=== PATIENT | male | born 1945 | race Caucasian/White ===

== ENCOUNTER 2016-07-25 01:41 | Inpatient (IN) | payer MEDICARE, OTHER ==
[2016-07-25] VITALS (10 sets, daily range): BP systolic 109–167; BP diastolic 62–113
[~2016-07-25] VITALS: Ht 165.1 cm; Wt 48.2 kg
[2016-07-25] MEDS ORDERED: NS IV 1000 ML 1,000 ML IV ONE (01:47)
[2016-07-25] MEDS ORDERED: methylPREDNISolone 125 MG (Solu-MEDROL) VIAL IVP ONE (02:00)
[2016-07-25] MEDS ORDERED: RT-ALBUTEROL/IPRATROPIUM 3 ML (DUONEB) VIAL INH ONE (02:00)
[2016-07-25 02:12] LABS: BASOPHILS # (AUTO) 0.1 10^3/uL (0.0-0.1); BASOPHILS % (AUTO) 1 % (0-10); EOSINOPHILS # (AUTO) 0.8 10^3/uL (0.0-0.3); EOSINOPHILS % (AUTO) 10 % (0-10); LYMPHOCYTES # (AUTO) 3.3 X 10^3 (1.0-4.0); LYMPHOCYTES % (AUTO) 41 % (12-44); MEAN CORPUSCULAR HEMOGLOBIN 33 PG (25-34); MEAN CORPUSCULAR HGB CONC 32 G/DL (32-36); MEAN CORPUSCULAR VOLUME 100 FL (80-99); MEAN PLATELET VOLUME 11.8 FL (7.4-10.4); MONOCYTES # (AUTO) 0.8 X 10^3 (0.0-1.0); MONOCYTES % (AUTO) 10 % (0-12); NEUTROPHILS # (AUTO) 3.2 X 10^3 (1.8-7.8); NEUTROPHILS % (AUTO) 39 % (42-75); PLATELET COUNT 222 10^3/uL (130-400); RED BLOOD COUNT 4.93 10^6/uL (4.35-5.85); RED CELL DISTRIBUTION WIDTH 13.2 % (10.0-14.5); WHITE BLOOD COUNT 8.1 10^3/uL (4.3-11.0)
[2016-07-25] MEDS ORDERED: CLAR-19 PO (02:36)
[2016-07-25] MEDS ORDERED: ALBU90AE INH (02:36)
[2016-07-25 02:39] LABS: ANION GAP 17 MMOL/L (5-14); BLOOD UREA NITROGEN 8 MG/DL (7-18); BUN/CREATININE RATIO 8; CARBON DIOXIDE 20 MMOL/L (21-32); CHLORIDE 105 MMOL/L (98-107); CREATININE SERUM 1.05 MG/DL (0.60-1.30); GFR ESTIMATED > 60; GLUCOSE 136 MG/DL (70-105); POTASSIUM 5.3 MMOL/L (3.6-5.0); SODIUM 142 MMOL/L (135-145)
[2016-07-25 02:40] LABS: ALANINE AMINOTRANSFERASE 15 U/L (0-55); ALBUMIN 4.4 G/DL (3.2-4.5); ASPARTATE AMINO TRANSFERASE 23 U/L (5-34); BILIRUBIN,TOTAL 0.3 MG/DL (0.1-1.0); TOTAL PROTEIN 7.4 G/DL (6.4-8.2); TROPONIN I < 0.30 NG/ML (<0.30)
--- NOTE | 2016-07-25 04:22 | ED Respiratory ---
General Chief Complaint: Respiratory Problems Stated Complaint: SOB Nursing Triage Note: Pt to ED per POV, assisted at car with WC. entered ER and reports patient not breathing well. Emergently brought to ED 7, Dr notified and RT paged. Pt is resp distress Source: patient, family Exam Limitations: no limitations History of Present Illness Time seen by provider: 01:47 Initial Comments This 70-year-old gentleman with COPD presents to the emergency room in respiratory distress. He was recently seen in the outpatient setting and prescribed antibiotics and an inhaler. He worsen despite treatment. He continues to smoke. He denies fever or significant cough. He is diaphoretic and in significant distress on arrival. He denies chest pain. He denies any cardiac problems. Allergies and Home Medications Allergies Coded Allergies: No Known Drug Allergies (Unverified , 07/25/16) Home Medications Albuterol Sulfate 90 Mcg Aer.pow.ba, #1 (Reported) Clarithromycin 500 Mg Tablet, #20 (Reported) Constitutional: see HPI EENTM: no symptoms reported Respiratory: see HPI Cardiovascular: no symptoms reported Gastrointestinal: no symptoms reported Genitourinary: no symptoms reported Musculoskeletal: no symptoms reported Skin: no symptoms reported Psychiatric/Neurological: No Symptoms Reported Hematologic/Lymphatic: No Symptoms Reported Immunological/Allergic: no symptoms reported Past Xbjvdpi-Cnjewm-Roljgs Hx Patient Social History Alcohol Use: Occasionally Uses Recreational Drug Use: No Smoking Status: Current Everyday Smoker Type Used: Cigars Recent Foreign Travel: No Contact w/Someone Who Travel: No Recent Infectious Disease Expo: No Recent Hopitalizations: No Seasonal Allergies Seasonal Allergies: No Surgeries HX Surgeries: Yes (ventral hernia) Respiratory Hx Respiratory Disorders: Yes Respiratory Disorders: COPD, Emphysema Cardiovascular Hx Cardiac Disorders: No Neurological Hx Neurological Disorders: No Reproductive System Hx Reproductive Disorders: No Genitourinary Hx Genitourinary Disorders: No Gastrointestinal Hx Gastrointestinal Disorders: No Musculoskeletal Hx Musculoskeletal Disorders: No Endocrine Hx Endocrine Disorders: No HEENT HX ENT Disorders: No Cancer Hx Cancer: No Psychosocial Hx Psychiatric Problems: No Integumentary HX Skin/Integumentary Disorder: No Blood Transfusions Hx Blood Disorders: No Physical Exam Vital Signs Vital Sign - Last 12Hours 07/25/16 01:41 Temp 98.1 Pulse 143 Resp 28 B/P (MAP) 188/147 Pulse Ox 80 O2 Delivery Nasal Cannula O2 Flow Rate 4.00 Capillary Refill : Less Than 3 Seconds General Appearance: WD/WN, severe distress HEENT: PERRL/EOMI, normal ENT inspection Neck: normal inspection Respiratory: respiratory distress, decreased breath sounds, accessory muscle use, crackles (Basilar), wheezing Cardiovascular: no edema, no murmur, tachycardia Gastrointestinal: non tender, soft Extremities: normal inspection, no pedal edema, no calf tenderness 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, no motor/sensory deficits, alert, normal mood/affect, oriented x 3 Skin: normal color, warm/dry Focused Exam Lactic Acid Level Laboratory Tests Test 07/25/16 01:50 07/25/16 02:49 Lactic Acid Level 8.71 MMOL/L (0.50-2.00) *H 2.35 MMOL/L (0.50-2.00) *H Progress/Results/Core Measures Results/Orders Lab Results Laboratory Tests Test 07/25/16 01:50 07/25/16 02:49 Range/Units White Blood Count 8.1 4.3-11.0 10^3/uL Red Blood Count 4.93 4.35-5.85 10^6/uL Hemoglobin 16.0 13.3-17.7 G/DL Hematocrit 49 40-54 % Mean Corpuscular Volume 100 H 80-99 FL Mean Corpuscular Hemoglobin 33 25-34 PG Mean Corpuscular Hemoglobin Concent 32 32-36 G/DL Red Cell Distribution Width 13.2 10.0-14.5 % Platelet Count 222 130-400 10^3/uL Mean Platelet Volume 11.8 H 7.4-10.4 FL Neutrophils (%) (Auto) 39 L 42-75 % Lymphocytes (%) (Auto) 41 12-44 % Monocytes (%) (Auto) 10 0-12 % Eosinophils (%) (Auto) 10 0-10 % Basophils (%) (Auto) 1 0-10 % Neutrophils # (Auto) 3.2 1.8-7.8 X 10^3 Lymphocytes # (Auto) 3.3 1.0-4.0 X 10^3 Monocytes # (Auto) 0.8 0.0-1.0 X 10^3 Eosinophils # (Auto) 0.8 H 0.0-0.3 10^3/uL Basophils # (Auto) 0.1 0.0-0.1 10^3/uL Prothrombin Time 13.0 12.2-14.7 SEC INR Comment 1.0 0.8-1.4 Activated Partial Thromboplast Time 26 24-35 SEC Sodium Level 142 135-145 MMOL/L Potassium Level 5.3 H 3.6-5.0 MMOL/L Chloride Level 105 98-107 MMOL/L Carbon Dioxide Level 20 L 21-32 MMOL/L Anion Gap 17 H 5-14 MMOL/L Blood Urea Nitrogen 8 7-18 MG/DL Creatinine 1.05 0.60-1.30 MG/DL Estimat Glomerular Filtration Rate > 60 BUN/Creatinine Ratio 8 Glucose Level 136 H 70-105 MG/DL Lactic Acid Level 8.71 *H 2.35 *H 0.50-2.00 MMOL/L Calcium Level 10.0 8.5-10.1 MG/DL Total Bilirubin 0.3 0.1-1.0 MG/DL Aspartate Amino Transf (AST/SGOT) 23 5-34 U/L Alanine Aminotransferase (ALT/SGPT) 15 0-55 U/L Alkaline Phosphatase 106 40-136 U/L Troponin I < 0.30 <0.30 NG/ML Total Protein 7.4 6.4-8.2 G/DL Albumin 4.4 3.2-4.5 G/DL Micro Results Microbiology 07/25/16 Influenza Types A,B Antigen (ATILIO) - Final, Complete My Orders Orders - MIKE GARCIA MD Cbc With Automated Diff (07/25/16 01:47) Comprehensive Metabolic Panel (07/25/16 01:47) Lactic Acid Analyzer (07/25/16 01:47) Blood Culture (07/25/16 01:47) Sputum Culture (07/25/16 01:47) Protime With Inr (07/25/16 01:47) Partial Thromboplastin Time (07/25/16 01:47) Chest 1 View, Ap/Pa Only (07/25/16 01:47) O2 (07/25/16 01:47) Saline Lock/Iv-Start (07/25/16 01:47) Saline Lock/Iv-Start (07/25/16 01:47) Vital Signs Adult Sepsis Patie Q1HR (07/25/16 01:47) Remove Rings In Anticipation O (07/25/16 01:47) Albuterol/Ipra Inhalation Soln (Duoneb I (07/25/16 02:00) Svn Sm Volume Nebulizer Rt-Rfs (07/25/16 01:47) Methylprednisolone Sod Succ (Solu-Medrol (07/25/16 02:00) Ns Iv 1000 Ml (Sodium Chloride 0.9%) (07/25/16 01:47) Ekg Tracing (07/25/16 01:47) Troponin I (07/25/16 01:47) Monitor-Rhythm Ecg Trace Only (07/25/16 01:47) Influenza A And B Antigens (07/25/16 02:30) Ekg Tracing (07/25/16 03:22) Medications Given in ED Current Medications Medications Dose Ordered Sig/Sandeep Route Start Time Stop Time Status Last Admin Dose Admin Albuterol/ Ipratropium 3 ml ONCE ONCE INH 07/25/16 02:00 07/25/16 02:01 DC 07/25/16 02:02 3 ML Methylprednisolone Sodium Succinate 125 mg ONCE ONCE IVP 07/25/16 02:00 07/25/16 02:01 DC 07/25/16 01:57 125 MG Sodium Chloride 1,000 ml @ 0 mls/hr Q0M ONCE IV 07/25/16 01:47 07/25/16 01:53 DC 07/25/16 01:57 999 MLS/HR Vital Signs/I&O Vital Sign - Last 12Hours 07/25/16 07/25/16 07/25/16 01:41 01:43 02:04 Temp 98.1 Pulse 143 101 Resp 28 26 B/P (MAP) 188/147 Pulse Ox 80 80 100 O2 Delivery Nasal Cannula Nasal Cannula O2 Flow Rate 4.00 4.00 Blood Pressure Mean: 161 Progress Note : Progress Note Patient was treated with DuoNeb and IV Solu-Medrol. BiPAP was applied. These therapies had good results. Patient was eventually able to come off of BiPAP and breathing normally on nasal cannula. He did not tolerate room air as he desaturated into the 80s without nasal cannula. The ST depression noted on the initial EKG resolved on the repeat EKG after respiratory distress was treated. Patient had mild hyperkalemia which was treated with DuoNeb and IV fluids. Lactic acid was markedly elevated but was significantly improved after being on BiPAP. There is no evidence for pneumonia on the chest x-ray. ECG EKG #1: EKG Time: 02:10 Rate: 95 Rhythm: Normal Sinus Comment Sinus rhythm with mild ST depression in multiple leads. Borderline prolonged QT interval. No significant axis deviation. EKG #2: EKG Time: 03:46 Rate: 96 Rhythm: Normal Sinus ECG Comparisson: Changed Comment Normal sinus rhythm with no ST elevation or depression. Mild ST depression on prior EKG has resolved. Borderline prolonged QT interval. No significant axis deviation. Diagnostic Imaging Diagonstic Imaging: CT Plain Films/CT/US/NM/MRI: chest Comments Chest x-ray viewed by me. Report not yet available. Hyperinflation with no other acute abnormalities appreciated. Departure Communication Time/Spoke to Admitting Phy: 04:00 Communication Case was reviewed with Dr. Chin who agrees with admission for treatment of COPD exacerbation and respiratory failure. She requests cardiology consultation due to the ST changes on the initial EKG. Time/Spoke to Consulting Physi: 04:05 Communication/Consulting Case discussed with Dr. Echevarria who agrees with admission. Impression Impression: Primary Impression: Respiratory failure Qualified Codes: J96.01 - Acute respiratory failure with hypoxia Additional Impressions: COPD exacerbation Hypoxia ST segment depression Hyperkalemia Disposition: ADMITTED INPATIENT Condition: Improved Decision to Admit Reason: Admit from ER (General) Decision to Admit/Date: Jul 25, 2016 Time/Decision to Admit Time: 01:52 Departure-Patient Inst. Referrals: NO,LOCAL PHYSICIAN (PCP/Family) Primary Care Physician MIKE GARCIA MD Jul 25, 2016 04:22
[2016-07-25] MEDS: NS IV 1000 ML 1,000 ML IV SCH ×4 (05:48→16:41)
[2016-07-25] MEDS: RT-ALBUTEROL/IPRATROPIUM 3 ML (DUONEB) VIAL IH SCH ×5 (07:21→20:48)
--- NOTE | 2016-07-25 07:44 | Diagnostic Imaging Report ---
CLINICAL INDICATION: Patient with shortness of breath. EXAM: Portable chest x-ray upright view. COMPARISONS: None. FINDINGS: Lungs/pleura: There is hyperinflation of both lungs which could be due to patient respiratory effort versus mild obstructive process from COPD or small vessel airway disease, such as asthma. There are increased lung markings in both upper lobes which may be related to atelectasis or scarring. There is no pneumothorax. There is no pleural effusion. Mediastinum: Unremarkable. Pulmonary vasculature: Unremarkable. Heart: There is cardiomegaly. Bones/extrathoracic soft tissue: There are small degenerative spurs involving the visualized thoracic and upper lumbar spine. IMPRESSION: 1: There is hyperinflation of both lungs which could be due to patient respiratory effort versus mild obstructive process from COPD or small vessel airway disease, such as asthma. Clinical correlation would better evaluate. 2: Increased lung markings in both lung apices which may be related to atelectasis or scarring. Comparison to prior chest x-ray exam, if available, would help better evaluate and exclude lung infiltrates. If none are available, then chest x-ray 2 views may be of benefit. 3: Cardiomegaly with no significant pulmonary vascular congestion. Dictated by: Dictated on workstation # [id number]
--- NOTE | 2016-07-25 08:11 | Consultation-Cardiology ---
HPI-Cardiology Cardiology Consultation Date of Consultation 07/25/16 Date of Admission Indication: shortness of breath HPI 70 years old gentleman with history of COPD has been controlled for while. Did not use his inhaler for about a year, he is an active smoker, over the last week he started having worsening shortness of breath, went to the urgent care and started on inhaler and antibiotics, last night his shortness of breath was significantly worse, came into the emergency room with acute respiratory insufficiency, he has been having cough, having some chest pain mainly muscular skeletal due to the cough. No palpitation. No syncope or near syncopal episodes. Did not have any previous cardiac history. No significant family history. Does not take any medication at home. Home Medications & Allergies Allergies: Coded Allergies: No Known Drug Allergies (Unverified , 07/25/16) Home Medication List Reviewed: Yes ZLV-[id number]-Tzuvpa Hx Patient Social History Alcohol Use: Occasionally Uses Recreational Drug Use: No Smoking Status: Current Everyday Smoker Type Used: Cigars Recent Foreign Travel: No Recent Infectious Disease Expo: No Recent Hopitalizations: No Physical Abuse Screen: No Sexual Abuse: No Past Medical History COPD otherwise no known past history Family Medical History Family Medical Hx grandmother has history of heart disease Family History: Patient reports no known family medical history. Constitutional: no symptoms reported, see HPI EENTM: no symptoms reported, see HPI Respiratory: see HPI, cough, dyspnea on exertion, orthopnea, short of breath, wheezing Cardiovascular: see HPI, chest pain (musculoskeletal mainly), No edema, No Hx of Intervention, No palpitations, No syncope, No vascular heart diseas, No other Gastrointestinal: no symptoms reported, see HPI Genitourinary: no symptoms reported, see HPI Musculoskeletal: no symptoms reported, see HPI Skin: no symptoms reported, see HPI Psychiatric/Neurological: No Symptoms Reported, See HPI Reviewed Test Results Reviewed Test Results Lab Laboratory Tests Test 07/25/16 01:50 07/25/16 02:49 Range/Units White Blood Count 8.1 4.3-11.0 10^3/uL Red Blood Count 4.93 4.35-5.85 10^6/uL Hemoglobin 16.0 13.3-17.7 G/DL Hematocrit 49 40-54 % Mean Corpuscular Volume 100 H 80-99 FL Mean Corpuscular Hemoglobin 33 25-34 PG Mean Corpuscular Hemoglobin Concent 32 32-36 G/DL Red Cell Distribution Width 13.2 10.0-14.5 % Platelet Count 222 130-400 10^3/uL Mean Platelet Volume 11.8 H 7.4-10.4 FL Neutrophils (%) (Auto) 39 L 42-75 % Lymphocytes (%) (Auto) 41 12-44 % Monocytes (%) (Auto) 10 0-12 % Eosinophils (%) (Auto) 10 0-10 % Basophils (%) (Auto) 1 0-10 % Neutrophils # (Auto) 3.2 1.8-7.8 X 10^3 Lymphocytes # (Auto) 3.3 1.0-4.0 X 10^3 Monocytes # (Auto) 0.8 0.0-1.0 X 10^3 Eosinophils # (Auto) 0.8 H 0.0-0.3 10^3/uL Basophils # (Auto) 0.1 0.0-0.1 10^3/uL Prothrombin Time 13.0 12.2-14.7 SEC INR Comment 1.0 0.8-1.4 Activated Partial Thromboplast Time 26 24-35 SEC Sodium Level 142 135-145 MMOL/L Potassium Level 5.3 H 3.6-5.0 MMOL/L Chloride Level 105 98-107 MMOL/L Carbon Dioxide Level 20 L 21-32 MMOL/L Anion Gap 17 H 5-14 MMOL/L Blood Urea Nitrogen 8 7-18 MG/DL Creatinine 1.05 0.60-1.30 MG/DL Estimat Glomerular Filtration Rate > 60 BUN/Creatinine Ratio 8 Glucose Level 136 H 70-105 MG/DL Lactic Acid Level 8.71 *H 2.35 *H 0.50-2.00 MMOL/L Calcium Level 10.0 8.5-10.1 MG/DL Total Bilirubin 0.3 0.1-1.0 MG/DL Aspartate Amino Transf (AST/SGOT) 23 5-34 U/L Alanine Aminotransferase (ALT/SGPT) 15 0-55 U/L Alkaline Phosphatase 106 40-136 U/L Troponin I < 0.30 <0.30 NG/ML Total Protein 7.4 6.4-8.2 G/DL Albumin 4.4 3.2-4.5 G/DL Physical Exam Vital Signs Vital Sign - Last 12Hours 07/25/16 01:41 Temp 98.1 Pulse 143 Resp 28 B/P (MAP) 188/147 Pulse Ox 80 O2 Delivery Nasal Cannula O2 Flow Rate 4.00 Capillary Refill : Less Than 3 Seconds General Appearance: WD/WN, Mild Distress Eyes: Bilateral Eye EOMI, Bilateral Eye Normal Inspection, Bilateral Eye PERRL HEENT: PERRL/EOMI, TMs Normal, Normal ENT Inspection, Pharynx Normal Neck: Full Range of Motion, Normal Inspection, Non Tender, Supple, Carotid Bruit Respiratory: Chest Non Tender, No Accessory Muscle Use, Crackles, Decreased Breath Sounds, Wheezing Cardiovascular: No Edema, No Gallop, No JVD, No Murmur, Normal Peripheral Pulses, Systolic Murmur, Tachycardia Gastrointestinal: Normal Bowel Sounds, No Organomegaly, No Pulsatile Mass, Non Tender, Soft Back: Normal Inspection, No CVA Tenderness, No Vertebral Tenderness Extremity: Normal Capillary Refill, Normal Inspection, Normal Range of Motion, Non Tender, No Calf Tenderness, No Pedal Edema Neurologic/Psychiatric: Alert, Oriented x3, No Motor/Sensory Deficits, Normal Mood/Affect Skin: Normal Color, Warm/Dry Lymphatic: No Adenopathy A/P-Cardiology Admission Diagnosis Acute respiratory insufficiency Acute exacerbation of COPD Tobaccoism Assessment/Plan Acute respiratory insufficiency, acute exacerbation of COPD, admitted and started on steroids, managed by primary care physician. Elevated lactic acid, trending down, receiving IV fluid. No leukocytosis. I'm expecting his leukocyte to increase after initiating steroids, repeat chest x- ray PA and lateral, repeat lactic acid level, evaluate 2-D echocardiogram Tobaccoism, educated on smoking cessation. Chest pain, nonspecific etiology, musculoskeletal in nature, currently no active chest pain, EKG showed nondiagnostic changes with minimal ST depression, I will repeat 12-lead EKG. Evaluate 2-D echocardiogram. Abnormal ECG, continue to monitor Trop, repeat ECG now Addendum at 408 p.m., patient had cardiomyopathy with elevated troponin, I proceeded with cardiac catheterization which showed severe disease at a long segment of the right coronary artery successful angioplasty and stent deployment using 2 stents of Xience Alpine 3.533 mm and 4.038 mm overlapping stents with excellent results Clinical Quality Measures DVT/VTE Risk/Contraindication: Risk Factor Score Per Nursin RFS Level Per Nursing on Admit: 4+=Very High MARIKA NELSON MD Jul 25, 2016 08:11
[2016-07-25 08:19] LABS: BASOPHILS % (AUTO) 0 % (0-10); EOSINOPHILS % (AUTO) 0 % (0-10); LYMPHOCYTES # (AUTO) 0.3 X 10^3 (1.0-4.0); LYMPHOCYTES % (AUTO) 5 % (12-44); MEAN CORPUSCULAR HEMOGLOBIN 34 PG (25-34); MEAN CORPUSCULAR HGB CONC 34 G/DL (32-36); MEAN CORPUSCULAR VOLUME 99 FL (80-99); MEAN PLATELET VOLUME 11.3 FL (7.4-10.4); MONOCYTES % (AUTO) 1 % (0-12); NEUTROPHILS # (AUTO) 5.9 X 10^3 (1.8-7.8); NEUTROPHILS % (AUTO) 94 % (42-75); PLATELET COUNT 174 10^3/uL (130-400); RED BLOOD COUNT 4.49 10^6/uL (4.35-5.85); WHITE BLOOD COUNT 6.2 10^3/uL (4.3-11.0)
[2016-07-25] MEDS: methylPREDNISolone 40 MG/ML (Solu-MEDROL) VIAL IV SCH ×3 (08:28→20:21)
[2016-07-25 08:34] LABS: BAND NEUTROPHILS 7 %; BASOPHILS % (MANUAL) 0 %; EOSINOPHILS % (MANUAL) 0 %; LYMPHOCYTES % (MANUAL) 4 %; NEUTROPHILS % (MANUAL) 89 %
[2016-07-25] MEDS ORDERED: NICOTINE 21 MG (NICODERM) PATCH TD PRN (09:00)
[2016-07-25 10:25] LABS: ABG HCO3 22 MMOL/L (23-27); ABG OXYGEN SATURATION 98 % (94-100); ABG PCO2 37 MMHG (35-45); ABG PH 7.39 (7.37-7.43); ABG PO2 95 MMHG (79-93); ABG TCO2 23.4 MMOL/L (21.0-31.0)
[2016-07-25 10:26] LABS: ALLENS TEST YES-POS; PATIENT TEMP 98.1
--- NOTE | 2016-07-25 10:34 | History & Physical-Hospitalist ---
HPI History of Present Illness: HPI/Chief Complaint CC: SOB HPI: 70 yoWM that presented to ER w/SOB and hx of COPD. Pt was recently seen and placed on antibiotics and inhaler but required hospitalization due to hypoxemia w/ elevated lactic acid of 8.71 that is now normalized, but troponin is elevated at 3.98 after normal level on admission. Cardiology is consultation evaluating. band sewer: Echo scheduled today Pt is NPO per Dr. Echevarria for possible cath after ECHO. Patient Interview: Pt does not currently have a PCP. Pt uses an inhaler at home, prescribed by Dr. Freeman. Pt has not had a flare up since 2014. Pt smokes but does not drink much. Pt is retired from 42 years on [employer]. Physical exam stable. Pt has not previously required a breathing machine Pt has been sick for a few days. Pt is experiencing congestion. Pt went to Urgent Care, he was prescribed an inhaler and antibiotics. Pt has taken Symbicort before, he had an allergic rxn to it. Pt states that he is allergic to steroids?? Pt does not ordinarily have heart problems Scribed by Adri Macdonald under the direct supervision of Dr. Cardenas. Source: patient Exam Limitations: no limitations Date Seen 07/25/16 Attending Physician Sarah Cardenas DO PCP No,Local Physician Referring Physician Date of Admission Jul 25, 2016 at 04:12 Home Medications & Allergies Home Medications Reviewed patient Home Medication Reconciliation Form Allergies Allergies Coded Allergies No Known Drug Allergies (Unverified07/25/16) Past Yvnydgw-Pieulb-Dfkwmp Hx Patient Social History Marrital Status: single Employed/Student: retired Alcohol Use: Occasionally Uses Recreational Drug Use: No Smoking Status: Current Everyday Smoker Type Used: Cigars Physical Abuse Screen: No Sexual Abuse: No Recent Foreign Travel: No Contact w/other who traveled: No Recent Hopitalizations: No Recent Infectious Disease Expo: No Seasonal Allergies Seasonal Allergies: No Surgeries HX Surgeries: Yes (ventral hernia) Respiratory Hx Respiratory Disorders: Yes Respiratory Disorders: COPD Cardiovascular Hx Cardiovascular Disorders: No Neurological Hx Neurological Disorders: No Reproductive System Hx Reproductive Disorders: No Genitourinary Hx Genitourinary Disorders: No Gastrointestinal Hx Gastrointestinal Disorders: No Musculoskeletal Hx Musculoskeletal Disorders: No Endocrine Hx Endocrine Disorders: No HEENT HX ENT Disorders: No Cancer Hx Cancer: No Psychosocial Hx Psychiatric Problems: No Integumentary HX Skin/Integumentary Disorder: No Blood Transfusions Hx Blood Disorders: No Family Medical History Family Hx: Patient reports no known family medical history. Review of Systems Constitutional: see HPI, weakness EENTM: no symptoms reported Respiratory: dyspnea on exertion, short of breath, wheezing Gastrointestinal: no symptoms reported Genitourinary: no symptoms reported Musculoskeletal: no symptoms reported Skin: no symptoms reported Psychiatric/Neurological: Depressed All Other Systems Reviewed Negative Unless Noted: Yes Physical Exam Physical Exam Vital Signs Vital Sign - Last 12Hours 07/25/16 01:41 Temp 98.1 Pulse 143 Resp 28 B/P (MAP) 188/147 Pulse Ox 80 O2 Delivery Nasal Cannula O2 Flow Rate 4.00 Capillary Refill : Less Than 3 Seconds General Appearance: No Apparent Distress, WD/WN, Chronically ill, Thin Eyes: Bilateral Eye Normal Inspection, Bilateral Eye PERRL HEENT: PERRL/EOMI, Normal ENT Inspection, Pharynx Normal Neck: Full Range of Motion, Normal Inspection, Non Tender, Supple, Carotid Bruit Respiratory: Chest Non Tender, No Accessory Muscle Use, No Respiratory Distress , Decreased Breath Sounds, Wheezing Cardiovascular: Regular Rate, Rhythm, No Edema, No Gallop, No JVD, No Murmur, Normal Peripheral Pulses Gastrointestinal: Normal Bowel Sounds, No Organomegaly, No Pulsatile Mass, Non Tender, Soft Back: Normal Inspection, No CVA Tenderness, No Vertebral Tenderness Extremity: Normal Capillary Refill, Normal Inspection, Normal Range of Motion, Non Tender, No Calf Tenderness, No Pedal Edema Neurologic/Psychiatric: Alert, Oriented x3, No Motor/Sensory Deficits, Normal Mood/Affect Skin: Normal Color, Warm/Dry Lymphatic: No Adenopathy Results Results/Procedures Lab Laboratory Tests 07/25/16 01:50 07/25/16 08:10 Assessment/Plan Admission Diagnosis Assessment: Severe hypoxemia due to exacerbation of COPD and current smoker causing elevated troponin of 3.98 will likely need cardiac catheter after echocardiogram per Dr. Echevarria Hyperkalemia Frail status Assessment and Plan Plan: Home O2 eval tomorrow Continue breathing treatments Echo scheduled today Pt is NPO per Dr. Echevarria IV steroids to continue since it appears he is not having any side effects at all whatsoever but may have had issues with the inhaled corticosteroids unsure at this time Home O2 evaluation for tomorrow morning in case we can set that up for discharge this weekend Smoking cessation Clinical Quality Measures DVT/VTE Risk/Contraindication: Risk Factor Score Per Nursin RFS Level Per Nursing on Admit: 4+=Very High SARAH CARDENAS DO Jul 25, 2016 10:34
--- NOTE | 2016-07-25 11:05 | Diagnostic Imaging Report ---
EXAM: PA and lateral views of the chest. INDICATION: Shortness of breath. FINDINGS: The lungs are hyperinflated. The heart size is borderline enlarged. No effusion or pneumothorax. The mediastinum and erwin appear unremarkable. Background interstitial thickening appears chronic. IMPRESSION: COPD. Borderline cardiac size. Dictated by: Dictated on workstation # [id number]
[2016-07-25] MEDS ORDERED: LIDOCAINE 1% INJ 20 ML (XYLOCAINE) VIAL ONE (13:27)
[2016-07-25] MEDS ORDERED: HEParin (CATH LAB) 2,000 ML IV ONE (13:27)
[2016-07-25] MEDS ORDERED: NS IV 1000 ML 1,000 ML ONE (13:27)
[2016-07-25] MEDS ORDERED: fentaNYL INJECTION 100 MCG/2 ML AMP ONE (14:24)
[2016-07-25] MEDS ORDERED: MIDAZOLAM 5 MG/5 ML (VERSED) VIAL ONE (14:24)
--- NOTE | 2016-07-25 15:04 | Cardiac Procedure Note-CS/ASA ---
Pre-Procedure Note Pre-Op Procedure Note H&P Reviewed The H&P was reviewed, patient examined and no changes noted. Date H&P Reviewed: Jul 25, 2016 Time H&P Reviewed: 15:04 Conscious Sedation Pre-Proced Time Reviewed: 15:04 ASA Class: 3 Airway Mallampati Classification: ([place] appropriate class) I. II. III, IV Lungs Heart ASA score ASA 1: a normal healthy patient ASA 2: a patient with a mild systemic disease (mid diabetes, controlled hypertension, obesity x ASA 3: a patient with a severe systemic disease that limits activity (angina , COPD, prior Myocardial infarction) ASA 4: a patient with an incapacitating disease that is a constant threat to life (CHF, renal failure) ASA 5: a moribund patient not expected to survive 24 hrs. (ruptured aneurysm) ASA 6: a declared brain patient whose organs are being harvested. For emergent operations, add the letter E after the classification Grade 3 Sedation Plan: Analgesia, Amnesia, Plan communicated to team members, Discussed options with patient/fam, Discussed risks with patient/fam Note The patient is an appropriate candidate to undergo the planned procedure, sedation, and anesthesia. The patient immediately re-assessed prior to indication. MARIKA NELSON MD Jul 25, 2016 3:04 pm
[2016-07-25] MEDS ORDERED: HEParin 1000 UNIT/ML (10ML VIAL) FOR BOLUS ONE (15:15)
[2016-07-25] MEDS ORDERED: ADENOSINE 3 MG/1 ML (ADENOSCAN) 30ML VIAL IV ONE (15:18)
[2016-07-25] MEDS ORDERED: NITROGLYCERIN DRIP 25 MG/D5W 250 ML IV ONE (15:28)
[2016-07-25] MEDS ORDERED: ATROPINE INJECTION 1 MG/10 ML SYR (ABBOTT) ONE (15:38)
[2016-07-25] MEDS ORDERED: ASPIRIN 325 MG (5 GR) TABLET ONE (15:55)
[2016-07-25] MEDS ORDERED: TICAGRELOR 90 MG TABLET (BRILINTA) PO ONE (15:55)
[2016-07-25] MEDS ORDERED: PATIENT MAY USE OWN MEDS, ALL PO SCH (16:00)
[2016-07-25] MEDS ORDERED: lisINopril 10 MG (PRINIVIL) TAB PO NR (16:00)
[2016-07-25] MEDS: TICAGRELOR 90 MG TABLET (BRILINTA) PO SCH (20:21)
[2016-07-26] VITALS: BP 124/73
[2016-07-26] MEDS: RT-ALBUTEROL SULF 2.5 MG/3 ML PRE-MIX VIAL IH PRN ×3 (02:06→02:09)
[2016-07-26] MEDS: RT-ALBUTEROL/IPRATROPIUM 3 ML (DUONEB) VIAL IH SCH ×3 (02:09→10:09)
[2016-07-26] MEDS: methylPREDNISolone 40 MG/ML (Solu-MEDROL) VIAL IV SCH ×2 (02:36→07:51)
[2016-07-26 04:19] LABS: MEAN PLATELET VOLUME 11.9 FL (7.4-10.4); RED BLOOD COUNT 4.01 10^6/uL (4.35-5.85); WHITE BLOOD COUNT 10.5 10^3/uL (4.3-11.0)
[2016-07-26 04:23] VITALS: BP 122/74
[2016-07-26 04:42] LABS: ALANINE AMINOTRANSFERASE 21 U/L (0-55); ALBUMIN 3.6 G/DL (3.2-4.5); ANION GAP 11 MMOL/L (5-14); ASPARTATE AMINO TRANSFERASE 60 U/L (5-34); BILIRUBIN,TOTAL 0.7 MG/DL (0.1-1.0); BLOOD UREA NITROGEN 16 MG/DL (7-18); BUN/CREATININE RATIO 21; CALCIUM 8.9 MG/DL (8.5-10.1); CARBON DIOXIDE 23 MMOL/L (21-32); CHLORIDE 108 MMOL/L (98-107); CHOLESTEROL 144 MG/DL (< 200); CREATININE SERUM 0.75 MG/DL (0.60-1.30); DIRECT LDL 84 MG/DL (1-129); GFR ESTIMATED > 60; GLUCOSE 131 MG/DL (70-105); POTASSIUM 4.1 MMOL/L (3.6-5.0); SODIUM 142 MMOL/L (135-145); TOTAL PROTEIN 5.8 G/DL (6.4-8.2); TRIGLYCERIDES 45 MG/DL (<150); VLDL CHOLESTEROL 9 MG/DL (5-40)
[2016-07-26 07:52] LABS: MAGNESIUM 2.1 MG/DL (1.8-2.4)
[2016-07-26] MEDS: TICAGRELOR 90 MG TABLET (BRILINTA) PO SCH (07:52)
[2016-07-26 08:00] VITALS: BP 144/75
--- NOTE | 2016-07-26 08:04 | Cardiology Progress Note ---
Subjective Subjective/Events-last exam patient is laying down in bed, feeling better, no chest pain, breathing better. Groin is healed well. Review of Systems General: No Chills, No Night Sweats, No Fatigue, No Malaise, No Appetite, No Other HEENT: No Head Aches, No Visual Changes, No Eye Pain, No Ear Pain, No Dysphasia , No Sinus Congestion, No Post Nasal Drip, No Sore Throat, No Other Pulmonary: Dyspnea, No Cough, No Pleuritic Chest Pain, No Other Cardiovascular: No: Chest Pain, Edema, Lt Headedness, Orthopnea, Other, Palpitations, Paroxysmal Noc. Dyspnea Objective-Cardiology Exam Last Set of Vital Signs Vital Signs 07/25/16 07/26/16 07/26/16 14:06 04:23 06:30 Temp 97.1 Pulse 97 Resp 20 B/P (MAP) 122/74 Pulse Ox 94 O2 Delivery Room Air O2 Flow Rate 2.00 Capillary Refill : Less Than 3 Seconds I&O Bad tableGeneral: Alert, Oriented X3, Cooperative HEENT: Atraumatic, PERRLA Neck: Supple, No JVD, No Thyromegaly Lungs: Clear to Auscultation, Normal Air Movement Heart: Regular Rate, Normal S1, Normal S2, No Murmurs Abdomen: Normal Bowel Sounds, Soft, No Tenderness, No Hepatosplenomegaly, No Masses Extremities: No Clubbing, No Cyanosis, No Edema, Normal Pulses, No Tenderness/ Swelling Skin: No Rashes, No Breakdown, No Significant Lesion Neuro: Normal Gait, Normal Speech, Strength at 5/5 X4 Ext, Normal Tone, Sensation Intact Psych/Mental Status: Mental Status NL, Mood NL Results Lab Laboratory Tests 07/25/16 08:10 07/26/16 03:15 A/P-Cardiology Admission Diagnosis Acute respiratory insufficiency Acute exacerbation of COPD Non-ST elevation myocardial infarction Congestive heart failure, acute left ventricular systolic dysfunction, ischemic and nonischemic cardiomyopathy Tobaccoism Assessment/Plan Acute respiratory insufficiency, acute exacerbation of COPD, better at this time. Managed by primary care physician. Coronary artery disease, severe disease at a long segment of the right coronary artery, complex intervention with deployment of 2 long stents Xience Alpine 3.5 33 and 4.038 expanded to 4.3 proximally and 4.0 distally. Educated in length about the importance of compliance with medication patient will need to be on aspirin and Brilinta for a full year at least. Congestive heart failure, acute left ventricular systolic dysfunction, ischemic cardiomyopathy in addition to nonischemic cardiomyopathy due to hypoxemia. Patient is started on beta blockers and JACLYN inhibitor, monitor as an outpatient. Elevated lactic acid, trending down, receiving IV fluid. No leukocytosis. followed and managed by primary care physician Jessica, educated on smoking cessation. Chest pain, nonspecific etiology, reporting improvement. Continue to monitor Clinical Quality Measures DVT/VTE Risk/Contraindication: Risk Factor Score Per Nursin RFS Level Per Nursing on Admit: 4+=Very High MARIKA NELSON MD Jul 26, 2016 08:04
[2016-07-26] MEDS ORDERED: METO-270 PO (08:06)
[2016-07-26] MEDS ORDERED: LISI10TA2 PO (08:06)
[2016-07-26] MEDS ORDERED: TICA90TA PO (08:06)
[2016-07-26] MEDS ORDERED: ASPI-983 PO (08:06)
--- NOTE | 2016-07-26 08:07 | Discharge Inst-Post CATH ---
Discharge Inst-CATH Post Cardiac Cath D/C Inst Follow Up/Plan Appointment with Dr. Echevarria's office next week CARDIAC CATH DISCHARGE INSTRUCTIONS *Hold Metformin for 48 hours post heart cath. ACTIVITY * Go Home directly and rest. * Limit activity of the leg (or wrist if it was used) for 7 days including aerobics, swimming, jogging, bicycling, etc. * Restrict stair-climbing for 7 days if possible, if not, climb up with your non -cath leg, then bring together on the same step. * Avoid lifting, pushing, pulling or excessive movement of the affected extremity for 7 days. * Customary sexual activity may be resumed after 2 days-use caution not to use a position that strains or causes pain to the affected extremity. * No driving for 24 hours. * NO SMOKING. * Avoid straining for bowel movements for 7 days. * Gentle walking on level ground is allowed. * Returning to work will depend on the type of procedure and the results. Your doctor will discuss this with you. CALL YOUR DOCTOR FOR ANY OF THE FOLLOWING: *If bleeding from the puncture site occurs- Apply gentle pressure to site with clean cloth and call your doctor or EMS. * If a knot or lump forms under the skin, increases in size, or causes pain. * If bruising appears to be worsening or moving further down your leg instead of disappearing. * Temperature above 101 F. CARE OF YOUR GROIN INCISION; * Bruising or purple discoloration of the skin near the puncture site is common. * You may shower only, no bathtub bathing for 5 days. Be careful to avoid slipping as your leg may feel stiff. * If a closure device was used on your femoral artery, please see the attached guide regarding care of the device and your leg. * REMOVE the dressing from your groin the next day after your procedure in the shower. CARE OF YOUR WRIST INCISION; * Bruising or purple discoloration of the skin near the puncture site is common. * You may shower. * DO NOT submerge wrist. * Remove dressing in 24 hours. MARIKA ECHEVARRIA MD Jul 26, 2016 08:07
[2016-07-26] MEDS ORDERED: ASPIRIN E.C. 81 MG (ECOTRIN) TAB PO SCH (09:00)
[2016-07-26] MEDS ORDERED: NICOTINE PATCH REMOVAL TP SCH (09:00)
[2016-07-26] MEDS ORDERED: lisINopril 10 MG (PRINIVIL) TAB PO SCH (09:00)
[2016-07-26] MEDS ORDERED: ALBU90AE INH (09:20)
[2016-07-26] MEDS ORDERED: PRED10TA22 PO (09:20)
--- NOTE | 2016-07-26 09:27 | Discharge Summary-Hospitalist ---
Diagnosis/Chief Complaint Date of Admission Jul 25, 2016 at 10:17 Date of Discharge Discharge Date: Jul 26, 2016 Admission Diagnosis Assessment: Severe hypoxemia due to exacerbation of COPD and current smoker causing elevated troponin of 3.98 will likely need cardiac catheter after echocardiogram per Dr. Echevarria Hyperkalemia Frail status Discharge Diagnosis Acute respiratory insufficiency Acute exacerbation of COPD Non-ST elevation myocardial infarction requiring cardiac catheterization with deployment of right coronary artery stent 2 Congestive heart failure, acute left ventricular systolic dysfunction, ischemic and nonischemic cardiomyopathy Tobaccoism Plan: Home O2 eval tomorrow Continue breathing treatments Echo scheduled today Pt is NPO per Dr. Echevarria IV steroids to continue since it appears he is not having any side effects at all whatsoever but may have had issues with the inhaled corticosteroids unsure at this time Home O2 evaluation for tomorrow morning in case we can set that up for discharge this weekend Smoking cessation Reason Hospital Visit/Course CC: SOB HPI: 70 yoWM that presented to ER w/SOB and hx of COPD. Pt was recently seen and placed on antibiotics and inhaler but required hospitalization due to hypoxemia w/ elevated lactic acid of 8.71 that is now normalized, but troponin is elevated at 3.98 after normal level on admission. 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 Echevarria for possible cath after ECHO. Patient Interview: Pt does not currently have a PCP. Pt uses an inhaler at home, prescribed by Dr. Freeman. Pt has not had a flare up since 2014. Pt smokes but does not drink much. Pt is retired from 42 years on [employer]. Physical exam stable. Pt has not previously required a breathing machine Pt has been sick for a few days. Pt is experiencing congestion. Pt went to Urgent Care, he was prescribed an inhaler and antibiotics. Pt has taken Symbicort before, he had an allergic rxn to it. Pt states that he is allergic to steroids?? Pt does not ordinarily have heart problems Scribed by Adri Macdonald under the direct supervision of Dr. Cardenas. Note from 07/26/16: Patient doing well and having no problems following catheterization Less short of breath and no wheezing Breathing much better No fever, vital signs stable, pleasant, oriented 3 Regular rate and rhythm, clear to auscultation bilaterally but diminished in the bases No edema Patient doing very well and had a cardiac catheterization uncomplicated with too long right coronary artery stents placed by Dr. Echevarria an uncomplicated manner. Patient denies any other shortness of breath or chest pain and I am evaluating home O2 results because we are in the process of discharging him home on Brilinta and smoking cessation in close follow-up with Dr. Echevarria. I am going to provide information for him to find a physician to establish his care and to monitor closely with close follow-up. Discharge Summary Discharge Physical Examination Allergies: Coded Allergies: Symbicort (Verified Allergy, 07/26/16) Vitals & I&Os Vital Signs Date Time Temp Pulse Resp B/P (MAP) Pulse Ox O2 Delivery O2 Flow Rate FiO2 07/26/16 08:00 97.8 114 22 144/75 93 Room Air 07/25/16 20:00 Hospital Course Labs (last 24 hrs) Laboratory Tests 07/25/16 10:15: Blood Gas Puncture Site LR, Blood Gas Patient Temperature 98.1, Arterial Blood pH 7.39, Arterial Blood Partial Pressure CO2 37, Arterial Blood Partial Pressure O2 95H, Arterial Blood HCO3 22L, Arterial Blood Total CO2 23.4, Arterial Blood Oxygen Saturation 98, Arterial Blood Base Excess -2.0, Desean Test YES-POS, Blood Gas Ventilator Setting NO, Blood Gas Inspired Oxygen 2 07/26/16 03:15: White Blood Count 10.5, Red Blood Count 4.01L, Hemoglobin 13.4, Hematocrit 39L, Mean Corpuscular Volume 98, Mean Corpuscular Hemoglobin 33, Mean Corpuscular Hemoglobin Concent 34, Red Cell Distribution Width 13.0, Platelet Count 174, Mean Platelet Volume 11.9H, Sodium Level 142, Potassium Level 4.1, Chloride Level 108H, Carbon Dioxide Level 23, Anion Gap 11, Blood Urea Nitrogen 16, Creatinine 0.75, Estimat Glomerular Filtration Rate > 60, BUN/Creatinine Ratio 21, Glucose Level 131H, Calcium Level 8.9, Magnesium Level 2.1, Total Bilirubin 0.7, Aspartate Amino Transf (AST/SGOT) 60H, Alanine Aminotransferase (ALT/SGPT) 21, Alkaline Phosphatase 75, Total Protein 5.8L, Albumin 3.6, Triglycerides Level 45, Cholesterol Level 144, LDL Cholesterol Direct 84, VLDL Cholesterol 9, HDL Cholesterol 50 Microbiology 07/25/16 Influenza Types A,B Antigen (ATILIO) - Final, Complete Pending Labs Laboratory Tests 07/26/16 03:15: White Blood Count 10.5, Red Blood Count 4.01, Hemoglobin 13.4, Hematocrit 39, Mean Corpuscular Volume 98, Mean Corpuscular Hemoglobin 33, Mean Corpuscular Hemoglobin Concent 34, Red Cell Distribution Width 13.0, Platelet Count 174, Mean Platelet Volume 11.9, Sodium Level 142, Potassium Level 4.1, Chloride Level 108, Carbon Dioxide Level 23, Anion Gap 11, Blood Urea Nitrogen 16, Creatinine 0.75, Estimat Glomerular Filtration Rate > 60, BUN/Creatinine Ratio 21, Glucose Level 131, Calcium Level 8.9, Magnesium Level 2.1, Total Bilirubin 0.7, Aspartate Amino Transf (AST/SGOT) 60, Alanine Aminotransferase (ALT/SGPT) 21, Alkaline Phosphatase 75, Total Protein 5.8, Albumin 3.6, Triglycerides Level 45, Cholesterol Level 144, LDL Cholesterol Direct 84, VLDL Cholesterol 9, HDL Cholesterol 50 Discharge Home Medications: Active Scripts Active Prednisone 10 Mg Tab.ds.pk 10 Mg PO DAILY Take 6 tabs(60mg)daily,decrease by 1 tab(10MG)daily. Proair Respiclick (Albuterol Sulfate) 90 Mcg Aer.pow.ba 1-2 Puff INH Q4H PRN Aspirin EC (Aspirin) 81 Mg Tablet.dr 81 Mg PO DAILY Lisinopril 10 Mg Tablet 10 Mg PO DAILY Metoprolol Succinate 25 Mg Tab.er.24h 25 Mg PO DAILY Brilinta (Ticagrelor) 90 Mg Tablet 90 Mg PO BID Reported Clarithromycin 500 Mg Tablet 500 Mg PO BID 10 Days FILLED #20 07-19-16 Instructions to patient/family Please see electonic discharge instructions given to patient. Clinical Quality Measures DVT/VTE Risk/Contraindication: Risk Factor Score Per Nursin RFS Level Per Nursing on Admit: 4+=Very High MALAIKA CARDENAS DO Jul 26, 2016 09:27
--- NOTE | 2016-07-26 10:26 | CARDIAC CATHETERIZATION ---
DATE OF SERVICE: 07/25/2016 BRIEF HISTORY: The patient is a 70-year-old gentleman with a history of COPD and tobaccoism. Admitted with acute respiratory insufficiency, was noted to have normal troponin on the first set, but had EKG changes with tachycardia, second set was elevated, echocardiogram showed severe cardiomyopathy. I decided to proceed with cardiac catheterization, possible PTCA. PROCEDURE NOTE: After explaining the procedure to the patient, all pros and cons were explained, all questions were answered. The patient signed consent then he was placed on the cardiac catheterization laboratory. Right groin was prepped in a sterile fashion. Local anesthesia applied to the right groin. A 6-Mozambican sheath was placed in the right femoral artery. A combination of right and left Rui catheter were used to access the right and left coronary system. Multiple views were obtained. A pigtail catheter advanced to the left ventricular cavity. Pressure was measured. Left ventriculogram was done. Pullback LV to aorta was done. At that point, the patient had significant long lesion in the right coronary artery; I decided to proceed with FFR. The patient was given 5000 units of heparin. FR guide was advanced to the right coronary artery. FFR wire was advanced and parked distally. Baseline was 0.82. The patient was started on adenosine drip and within 35 seconds, his FFR was down to 0.78. I then stopped the adenosine, proceeded with balloon pre-dilatation using 3.5 x 30 mm Emerge balloon. Then, I proceeded with deployment of XIENCE Alpine 3.5 x 33 mm stent in the distal right coronary artery, expanded to 4 mm. Proximal to that, a second stent 4.0 x 38 mm was deployed. Then, expanded to 4.2 mm and the overlap area was expanded to 4.3 mm. There was small residual area in the distal stent not fully deployed. I used noncompliant balloon NC Quantum 4.0 x 20 mm and deployed under 15 atmosphere. Angiogram showed excellent results. The patient was given nitroglycerin during the procedure. His total contrast used is 180 mL. Total radiation dose is 277 mGy. FINDINGS: 1. Hemodynamics, FFR was 0.82 at baseline and 0.79 after adenosine for 35 seconds. 2. LV gram 109/15, end-diastolic pressure of 15, aortic pressure 125/67, mean of 82. Anatomy to this main coronary artery has mild disease, nonobstructive disease. 3. Left anterior descending artery has tubular stenosis, mild disease. 4. Left circumflex artery has mild disease, nonobstructive disease. 5. Right coronary artery is a large dominant artery with severe disease at a very long segment, extending throughout the body of the right coronary artery. Successful balloon angioplasty, then deployment of 2 stents of XIENCE Alpine distally 3.5 x 33 mm proximally, 4.0 x 38 mm overlapping stent expanded proximally to 4.3 mm and distally 4.0 mm with excellent results. No residual stenosis was noted. 6. Left ventriculogram was done in the right anterior oblique position. Left ventricle is dilated with hypokinesia involving the apex and inferoapical segment and anterior apical segment. Estimated ejection fraction 40%-45%. CONCLUSION: 1. Severe stenosis at a long segment of the right coronary artery up to 80% and in some area up to 90% with successful deployment of 2 overlapping stents XIENCE Alpine distally 3.5 x 33 mm and proximally 4.0 x 38 mm, expanding to 4.3 mm proximally and 4.2 mm distally with excellent results. 2. Mild disease in the LAD and circumflex artery. 3. Prominent left ventricle with hypokinesia at the apex, anteroapical and inferoapical with estimated ejection fraction of 40%-45%. DISCUSSION AND RECOMMENDATION: The patient was bolused with aspirin and Brilinta. I will monitor him overnight. Job ID: [id number] DocumentID: [id number] Dictated Date: 07/25/2016 16:05:01 Information Assurance Manager Date: 07/26/2016 07:34:40 Dictated By: MARIKA NELSON MD
--- NOTE | 2016-07-26 10:47 | ECHOCARDIOGRAPHY REPORT ---
DATE OF SERVICE: 07/25/2016 PROCEDURE: Two-dimensional echocardiogram. REFERRING PHYSICIAN: Dr. Chin. INDICATION: Elevated troponin level. MEASUREMENT: LVID end diastolic 4.1, IVS thickness 1.1, LVPW thickness 1.1, left atrial diameter 3.1, ejection fraction 40%-45%. FINDINGS: 1. Technical quality is good. 2. The left ventricle is dilated with diffuse left ventricular hypokinesia, more pronounced at the apex and inferoapical segment, inferior wall. Estimated ejection fraction 40%-45%. 3. The left atrium is normal in size. No clots or thrombus were seen within the left atrium. 4. The right atrium and right ventricle are normal in size. No clots or thrombus were seen within the right side. 5. The mitral valve is normal in morphology with mild mitral regurgitation noted by color Doppler flow. No mitral valve prolapse. No mitral valve stenosis. 6. The aortic valve is trileaflet with normal opening and closing pattern. No significant aortic stenosis or regurgitation was seen. 7. The tricuspid valve is normal in morphology with mild tricuspid regurgitation noted by color Doppler flow. Doppler across the tricuspid valve estimated pulmonary artery pressure of 27 plus right atrial pressure. 8. The pulmonic valve is functioning normally. 9. No pericardial effusion. CONCLUSION: 1. Prominent left ventricle with diffuse left ventricular hypokinesia, more pronounced at the inferior wall, inferoapical segment. 2. Systolic function is reduced. Estimated ejection fraction 40%-45%. 3. Mild mitral and tricuspid regurgitation. 4. Estimated pulmonary artery pressure of 35 mmHg. Job ID: [id number] DocumentID: [id number] Dictated Date: 07/25/2016 17:07:49 Delivery Representative Date: 07/26/2016 09:41:10 Dictated By: MARIKA NELSON MD
== END 2016-07-26 10:50 | disposition home or self-care (01) | DRG 246 ==
LOC: EDUNIT# 01:43 → ER 01:45 → UNDOADMOB 04:12 → 4TH 04:12 → INTOOBSV 10:17 → OBSVTOIN 10:17 → ICU 16:35
PROVIDERS: ADMIT Internal Medicine; ATTEND Internal Medicine
PROC: 027035Z Dilation of Coronary Artery, One Artery with Two Drug-eluting Intraluminal Devices, Percutaneous Approach (ICD-10-PCS; principal; 2016-07-25)
PROC: 4A023N7 Measurement of Cardiac Sampling and Pressure, Left Heart, Percutaneous Approach (ICD-10-PCS; 2016-07-25)
PROC: B2151ZZ Fluoroscopy of Left Heart using Low Osmolar Contrast (ICD-10-PCS; 2016-07-25)
PROC: B2111ZZ Fluoroscopy of Multiple Coronary Arteries using Low Osmolar Contrast (ICD-10-PCS; 2016-07-25)
DX: I21.4 Non-ST elevation (NSTEMI) myocardial infarction (principal); J44.1 Chronic obstructive pulmonary disease with (acute) exacerbation; R06.89 Other abnormalities of breathing; I42.9 Cardiomyopathy, unspecified; I50.21 Acute systolic (congestive) heart failure; R09.02 Hypoxemia; F17.210 Nicotine dependence, cigarettes, uncomplicated; E87.5 Hyperkalemia; R54 Age-related physical debility; I25.10 Atherosclerotic heart disease of native coronary artery without angina pectoris; I08.1 Rheumatic disorders of both mitral and tricuspid valves; I25.5 Ischemic cardiomyopathy
CPT/HCPCS: 36415; 71010; 71020; 80053; 80061; 82805; 83605; 83735; 84484; 85007; 85025; 85027; 85347; 85610; 85730; 87040; 87081; 87804; 93005; 93041; 93306; 93458; 93571; 94640; 94760; 94761; 96374; G0378

== ENCOUNTER 2016-11-04 11:05 | Outpatient (RCR) | payer MEDICARE, OTHER ==
[~2016-11-04 11:05] MED LIST: ALBU90AE INH; ASPI-983 PO; CLAR-19 PO; LISI10TA2 PO; METO-387 PO; PRED10TA22 PO; TICA90TA PO
== END 2016-11-07 | disposition home or self-care (01) ==
LOC: CR 11:05
PROVIDERS: ATTEND Internal Medicine Cardiovascular Disease
DX: Z48.812 Encounter for surgical aftercare following surgery on the circulatory system (principal); I25.2 Old myocardial infarction; Z95.5 Presence of coronary angioplasty implant and graft
CPT/HCPCS: 93798

== ENCOUNTER → 2017-01-29 | Outpatient (CLI) | payer MEDICARE, OTHER ==
[~2017-01-29] MED LIST changes: +METO-270 PO; -METO-387 PO
== END ==
LOC: CARD 08:47
PROVIDERS: ATTEND Internal Medicine Cardiovascular Disease
DX: I25.10 Atherosclerotic heart disease of native coronary artery without angina pectoris (principal); I50.9 Heart failure, unspecified; I34.0 Nonrheumatic mitral (valve) insufficiency; I07.1 Rheumatic tricuspid insufficiency; R94.31 Abnormal electrocardiogram [ECG] [EKG]
CPT/HCPCS: 93306

== ENCOUNTER → 2017-04-09 | Outpatient (CLI) | payer MEDICARE, OTHER ==
[~2017-04-09] MED LIST changes: +CATHETER FLUSH 10 ML SYR IV PRN; -METO-270 PO; +METO-387 PO
[2017-04-09 13:48] VITALS: BP 153/77
--- NOTE | 2017-04-10 00:02 | STRESS TEST ---
DATE OF SERVICE: 04/09/2017 EXERCISE MYOVIEW STRESS TEST REPORT REFERRING PHYSICIAN: Dr. Santo Mcgee. Baseline heart rate is 58, baseline blood pressure 153/77. Baseline EKG is sinus rhythm with no ischemic changes. In summary, the patient was injected with 9.92 mCi of technetium-99 Myoview and the resting images were obtained. Then, the patient started exercising with the baseline heart rate, blood pressure and EKG mentioned above. The patient was injected with 30.5 mCi of technetium-99 Myoview at the peak exercise level. He was able to finish a total of 7 minutes and 40 seconds on standard Maximilian protocol. EKG was showing minimal nondiagnostic changes. Blood pressure 168/85. During recovery, heart rate and blood pressure returned to baseline. EKG returned to baseline. The resting and stress images were reviewed and compared in the short axis, horizontal long axis, and vertical long axis views. Review of the images showed typical male pattern with no significant ischemia or infarction. SSS is 0. TID value 1.02. On the gated images, the left ventricle appeared to be normal size with normal contractility. Calculated ejection fraction 60%. CONCLUSION: 1. Good exercise tolerance, a total of 7 minutes 40 seconds on standard Maximilian protocol, achieving 87% of maximum expected heart rate. 2. Appropriate heart rate with mild hypertensive response to exercise returned to baseline during recovery. 3. Minimal nondiagnostic EKG changes with exercise returned to baseline during recovery. 4. No ischemia or infarction on SPECT images. 5. Normal left ventricular size with normal contractility. Calculated ejection fraction 60%. Job ID: [id number] DocumentID: [id number] Dictated Date: 04/09/2017 17:35:15 Chrome Worker Date: 04/10/2017 00:01:36 Dictated By: MARIKA NELSON MD
== END ==
LOC: CARD 11:33
PROVIDERS: ATTEND Internal Medicine Cardiovascular Disease
DX: I25.10 Atherosclerotic heart disease of native coronary artery without angina pectoris (principal); I34.0 Nonrheumatic mitral (valve) insufficiency; I07.1 Rheumatic tricuspid insufficiency; J44.9 Chronic obstructive pulmonary disease, unspecified; R94.31 Abnormal electrocardiogram [ECG] [EKG]
CPT/HCPCS: 78452; 93017

== ENCOUNTER 2017-07-25 06:51 | Emergency (ER) | payer MEDICARE, OTHER ==
[~2017-07-25] VITALS: Ht 165.1 cm; Wt 54.4 kg
[~2017-07-25 06:51] MED LIST changes: -CATHETER FLUSH 10 ML SYR IV PRN
[2017-07-25] MEDS ORDERED: RT-ALBUTEROL/IPRATROPIUM 3 ML (DUONEB) VIAL INH ONE ×2 (07:00→07:30)
[2017-07-25 07:08] LABS: BASOPHILS # (AUTO) 0.1 10^3/uL (0.0-0.1); BASOPHILS % (AUTO) 1 % (0-10); EOSINOPHILS # (AUTO) 0.9 10^3/uL (0.0-0.3); EOSINOPHILS % (AUTO) 10 % (0-10); HEMATOCRIT 47 % (40-54); HEMOGLOBIN 15.6 G/DL (13.3-17.7); LYMPHOCYTES # (AUTO) 3.2 X 10^3 (1.0-4.0); LYMPHOCYTES % (AUTO) 37 % (12-44); MEAN CORPUSCULAR HEMOGLOBIN 34 PG (25-34); MEAN CORPUSCULAR HGB CONC 33 G/DL (32-36); MEAN CORPUSCULAR VOLUME 100 FL (80-99); MEAN PLATELET VOLUME 11.3 FL (7.4-10.4); MONOCYTES # (AUTO) 0.9 X 10^3 (0.0-1.0); MONOCYTES % (AUTO) 10 % (0-12); NEUTROPHILS # (AUTO) 3.7 X 10^3 (1.8-7.8); NEUTROPHILS % (AUTO) 42 % (42-75); PLATELET COUNT 240 10^3/uL (130-400); RED BLOOD COUNT 4.66 10^6/uL (4.35-5.85); RED CELL DISTRIBUTION WIDTH 12.9 % (10.0-14.5); WHITE BLOOD COUNT 8.7 10^3/uL (4.3-11.0)
--- NOTE | 2017-07-25 07:25 | Diagnostic Imaging Report ---
INDICATION: Shortness of air. COMPARISON: 07/25/2016 FINDINGS: Single frontal radiographic view of the chest was obtained and demonstrates borderline prominent cardiac silhouette. Pulmonary vasculature is also borderline prominent. Lungs are hyperinflated with flattening of the hemidiaphragms. There is also blunting of the bilateral costophrenic angles. There is no focal consolidation or pneumothorax. Bony structures show no gross acute abnormalities. IMPRESSION: 1. Mild cardiomegaly and mild pulmonary vascular congestion. 2. Probable small bibasilar effusions. 3. COPD. Dictated by: Dictated on workstation # [id number]
[2017-07-25 07:32] LABS: ALANINE AMINOTRANSFERASE 16 U/L (0-55); ALBUMIN 4.3 GM/DL (3.2-4.5); ALKALINE PHOSPHATASE 102 U/L (40-136); BILIRUBIN,TOTAL 0.4 MG/DL (0.1-1.0); BUN/CREATININE RATIO 12; CALCIUM 9.6 MG/DL (8.5-10.1); CARBON DIOXIDE 17 MMOL/L (21-32); CHLORIDE 105 MMOL/L (98-107); CREATININE SERUM 0.98 MG/DL (0.60-1.30); GFR ESTIMATED > 60; GLUCOSE 182 MG/DL (70-105); MAGNESIUM 2.6 MG/DL (1.8-2.4); POTASSIUM 4.4 MMOL/L (3.6-5.0); SODIUM 141 MMOL/L (135-145); TOTAL PROTEIN 7.1 GM/DL (6.4-8.2)
[2017-07-25] MEDS ORDERED: methylPREDNISolone 125 MG (Solu-MEDROL) VIAL IVP ONE (08:00)
[2017-07-25] MEDS ORDERED: RT-ALBUINH IH (08:23)
[2017-07-25] MEDS ORDERED: PRD20T PO (08:23)
--- NOTE | 2017-07-25 08:23 | ED Respiratory ---
General Chief Complaint: Respiratory Problems Stated Complaint: SOB Nursing Triage Note: PATIENT STATES HE HAS BEEN SHORT OF BREATH FOR 2-3 DAYS. HE HAS BEEN DOING BREATHING TREATMENTS AT HOME WITH LITTLE HELP. IT WAS WORSE THIS MORNING. Source: patient Exam Limitations: no limitations History of Present Illness Date Seen by Provider: Jul 25, 2017 Time Seen by Provider: 06:55 Initial Comments This 71-year-old gentleman presents to the emergency room with shortness of breath and respiratory distress. He has COPD he had has been using nebulizer treatments at home without significant relief this morning. He denies fever. He has nonproductive cough. He has coronary artery disease but denies chest pain. Allergies and Home Medications Allergies Coded Allergies: budesonide (Verified Allergy, Unknown, 07/26/16) formoterol (Verified Allergy, Unknown, 07/26/16) Home Medications Albuterol Sulfate 90 Mcg Aer.pow.ba, 1-2 PUFF INH Q4H PRN for SHORTNESS OF BREATH Prescribed by: MALAIKA CARDENAS on 07/26/16 0920 Albuterol Sulfate 1 Puff Puff, 1-4 PUFF IH Q4H PRN for SHORTNESS OF BREATH 1 PUFF = 90 MCG Prescribed by: MIKE PAYNE on 07/25/17822 Aspirin 81 Mg Tablet.dr, 81 MG PO DAILY Prescribed by: MARIKA NELSON on 07/26/16805 Lisinopril 10 Mg Tablet, 10 MG PO DAILY Prescribed by: MARIKA NELSON on 07/26/16805 Metoprolol Succinate 25 Mg Tab.er.24h, 25 MG PO DAILY Prescribed by: MARIKA NELSON on 07/26/16805 Prednisone 10 Mg Tab.ds.pk, 10 MG PO DAILY Take 6 tabs(60mg)daily,decrease by 1 tab(10MG)daily. Prescribed by: MALAIKA CARDENAS on 07/26/16919 Prednisone 20 Mg Tab, 40 MG PO DAILY Prescribed by: MIKE PAYNE on 07/25/17822 Ticagrelor 90 Mg Tablet, 90 MG PO BID Prescribed by: MARIKA NELSON on 07/26/16 08 Patient Home Medication List Home Medication List Reviewed: Yes Review of Systems Constitutional: no symptoms reported EENTM: no symptoms reported Respiratory: see HPI Cardiovascular: no symptoms reported Gastrointestinal: no symptoms reported Genitourinary: no symptoms reported Musculoskeletal: no symptoms reported Skin: no symptoms reported Psychiatric/Neurological: No Symptoms Reported Hematologic/Lymphatic: No Symptoms Reported Past Nxnpxss-Akocxu-Qvpnmv Hx Patient Social History Alcohol Use: Denies Use Number of Drinks Today: AA Alcohol Beverage of Choice: Beer Recreational Drug Use: No Smoking Status: Current Everyday Smoker Type Used: Cigars 2nd Hand Smoke Exposure: Yes Recent Foreign Travel: No Contact w/Someone Who Travel: No Recent Infectious Disease Expo: No Recent Hopitalizations: No Physical Abuse: No Sexual Abuse: No Seasonal Allergies Seasonal Allergies: No Past Medical History Surgeries: Yes (ventral hernia, left ankle surgery) Coronary Stent Respiratory: Yes COPD, Emphysema Currently Using CPAP: No Currently Using BIPAP: No Cardiac: Yes Coronary Artery Disease Neurological: No Reproductive Disorders: No Genitourinary: No Gastrointestinal: No Musculoskeletal: No Endocrine: No HEENT: No Cancer: No Psychosocial: No Nursing Suicide Risk Score: 0 Integumentary: No Blood Disorders: No Family Medical History Patient reports no known family medical history. Physical Exam Vital Signs Vital Signs - First Documented 07/25/17 07/25/17 06:56 07:02 Temp 97.6 Pulse 109 Resp 28 B/P (MAP) 150/90 (110) Pulse Ox 93 O2 Delivery Room Air O2 Flow Rate 2.00 Capillary Refill : Less Than 3 Seconds General Appearance: WD/WN, moderate distress, thin HEENT: PERRL/EOMI, normal ENT inspection Neck: normal inspection Respiratory: lungs clear, respiratory distress, accessory muscle use, wheezing Cardiovascular: no edema, no murmur, tachycardia Gastrointestinal: normal bowel sounds, non tender, soft Extremities: non-tender, normal inspection, no pedal edema, no calf tenderness Neurologic/Psychiatric: rehab director occupational therapist II-XII nml as tested, no motor/sensory deficits, alert, normal mood/affect, oriented x 3 Skin: normal color, warm/dry Progress/Results/Core Measures Suspected Sepsis Recent Fever Within 48 Hours: No Infection Criteria Present: Suspected New Infection New/Unexplained Altered Menta: No Sepsis Screen: Possible Sepsis Risk SIRS Temperature:97.6 Pulse: 109 Respiratory Rate: 28 Laboratory Tests 07/25/17 06:58: White Blood Count 8.7 Blood Pressure 150 /90 Mean: 110 Laboratory Tests 07/25/17 06:58: Creatinine 0.98, Platelet Count 240, Total Bilirubin 0.4 Results/Orders Lab Results Laboratory Tests Test 07/25/17 06:58 Range/Units White Blood Count 8.7 4.3-11.0 10^3/uL Red Blood Count 4.66 4.35-5.85 10^6/uL Hemoglobin 15.6 13.3-17.7 G/DL Hematocrit 47 40-54 % Mean Corpuscular Volume 100 H 80-99 FL Mean Corpuscular Hemoglobin 34 25-34 PG Mean Corpuscular Hemoglobin Concent 33 32-36 G/DL Red Cell Distribution Width 12.9 10.0-14.5 % Platelet Count 240 130-400 10^3/uL Mean Platelet Volume 11.3 H 7.4-10.4 FL Neutrophils (%) (Auto) 42 42-75 % Lymphocytes (%) (Auto) 37 12-44 % Monocytes (%) (Auto) 10 0-12 % Eosinophils (%) (Auto) 10 0-10 % Basophils (%) (Auto) 1 0-10 % Neutrophils # (Auto) 3.7 1.8-7.8 X 10^3 Lymphocytes # (Auto) 3.2 1.0-4.0 X 10^3 Monocytes # (Auto) 0.9 0.0-1.0 X 10^3 Eosinophils # (Auto) 0.9 H 0.0-0.3 10^3/uL Basophils # (Auto) 0.1 0.0-0.1 10^3/uL Sodium Level 141 135-145 MMOL/L Potassium Level 4.4 3.6-5.0 MMOL/L Chloride Level 105 98-107 MMOL/L Carbon Dioxide Level 17 L 21-32 MMOL/L Anion Gap 19 H 5-14 MMOL/L Blood Urea Nitrogen 12 7-18 MG/DL Creatinine 0.98 0.60-1.30 MG/DL Estimat Glomerular Filtration Rate > 60 BUN/Creatinine Ratio 12 Glucose Level 182 H 70-105 MG/DL Calcium Level 9.6 8.5-10.1 MG/DL Magnesium Level 2.6 H 1.8-2.4 MG/DL Total Bilirubin 0.4 0.1-1.0 MG/DL Aspartate Amino Transf (AST/SGOT) 23 5-34 U/L Alanine Aminotransferase (ALT/SGPT) 16 0-55 U/L Alkaline Phosphatase 102 40-136 U/L Troponin I < 0.30 <0.30 NG/ML C-Reactive Protein High Sensitivity 0.11 0.00-0.50 MG/DL B-Type Natriuretic Peptide 45.5 <100.0 PG/ML Total Protein 7.1 6.4-8.2 GM/DL Albumin 4.3 3.2-4.5 GM/DL Micro Results Microbiology 07/25/17 Influenza Types A,B Antigen (ATILIO) - Final, Complete My Orders Orders - MIKE GARCIA MD Cbc With Automated Diff (07/25/17 06:54) Comprehensive Metabolic Panel (07/25/17 06:54) Hs C Reactive Protein (07/25/17 06:54) Magnesium (07/25/17 06:54) Troponin I (07/25/17 06:54) Influenza A And B Antigens (07/25/17 06:54) Saline Lock/Iv-Start (07/25/17 06:54) Ekg Tracing (07/25/17 06:54) O2 (07/25/17 06:54) Monitor-Rhythm Ecg Trace Only (07/25/17 06:54) Chest 1 View, Ap/Pa Only (07/25/17 06:54) Albuterol/Ipra Inhalation Soln (Duoneb I (07/25/17 07:00) Svn Small Volume Nebulizer (07/25/17 06:54) Albuterol/Ipra Inhalation Soln (Duoneb I (07/25/17 07:30) Svn Small Volume Nebulizer (07/25/17 07:22) BNP (07/25/17 07:29) Methylprednisolone Sod Succ (Solu-Medrol (07/25/17 08:00) Medications Given in ED Current Medications Medications Dose Ordered Sig/Sandeep Route Start Time Stop Time Status Last Admin Dose Admin Albuterol/ Ipratropium 3 ml ONCE ONCE INH 07/25/17 07:00 07/25/17 07:01 DC 07/25/17 07:02 3 ML Albuterol/ Ipratropium 3 ml ONCE ONCE INH 07/25/17 07:30 07/25/17 07:31 DC 07/25/17 07:29 3 ML Methylprednisolone Sodium Succinate 62.5 mg ONCE ONCE IVP 07/25/17 08:00 07/25/17 08:01 DC 07/25/17 08:05 62.5 MG Vital Signs/I&O 07/25/17 07/25/17 07/25/17 07/25/17 06:56 06:57 07:02 07:29 Temp 97.6 Pulse 109 Resp 28 B/P (MAP) 150/90 (110) Pulse Ox 93 99 99 96 O2 Delivery Room Air Nasal Cannula Nasal Cannula Nasal Cannula O2 Flow Rate 2.00 2.00 07/25/17 08:32 Temp 97.6 Pulse 109 Resp 28 B/P (MAP) 101/68 (110) Pulse Ox 96 O2 Delivery Nasal Cannula O2 Flow Rate 2.00 Capillary Refill : Less Than 3 Seconds Blood Pressure Mean: 110 Progress Note : Progress Note Patient responded well to DuoNeb. He still had some wheezing after the first treatment. Treatment was repeated. He also received Solu-Medrol 62.5 mg by IV route. There is no evidence for infection. Troponin and EKG were normal. Patient reported he had not been taking Bevespi routinely. We discussed the proper use of this medication. Patient was advised to follow-up with Dr. Calle as soon as possible. A short course of prednisone was prescribed. Diagnostic Imaging Diagonstic Imaging: Xray Plain Films/CT/US/NM/MRI: chest Comments Chest x-ray viewed by me and report reviewed. See report below: NAME: MECHELLE CABALLERO [facility] REC#: [id number] PT STATUS: REG ER : 1945 PHYSICIAN: MIKE GARCIA MD ADMIT DATE: 07/25/17/ER Signed Date of Exam: 07/25/17 CHEST 1 VIEW, AP/PA ONLY INDICATION: Shortness of air. COMPARISON: 07/25/2016 FINDINGS: Single frontal radiographic view of the chest was obtained and demonstrates borderline prominent cardiac silhouette. Pulmonary vasculature is also borderline prominent. Lungs are hyperinflated with flattening of the hemidiaphragms. There is also blunting of the bilateral costophrenic angles. There is no focal consolidation or pneumothorax. Bony structures show no gross acute abnormalities. IMPRESSION: 1. Mild cardiomegaly and mild pulmonary vascular congestion. 2. Probable small bibasilar effusions. 3. COPD. Dictated by: Dictated on workstation # [id number] Dict: 07/25/17718 Trans: 07/25/17807 Interpreted by: BRAYDEN BORJA MD Electronically signed by: BRAYDEN BORJA MD 07/25/17 08 Departure Impression Primary Impression: COPD exacerbation Disposition: 01 HOME, SELF-CARE Condition: Improved Departure-Patient Inst. Decision time for Depature: 08:20 Referrals: CORIN CALLE MD (PCP/Family) Primary Care Physician Patient Instructions: Chronic Obstructive Pulmonary Disease (COPD), Including Emphysema Add. Discharge Instructions: Take your Bevespi 2 puffs twice daily as a maintenance medication. Use your albuterol rescue inhaler (Pro Air) when you do not have a nebulizer available and are feeling short of air. Complete the prednisone as prescribed. Return to the emergency room if you have worsening symptoms. Follow-up with Dr. Calle as soon as possible. Work toward quitting smoking and seek assistance from Dr. Calle if needed. All discharge instructions reviewed with patient and/or family. Voiced understanding. Scripts Prednisone (Prednisone) 20 Mg Tab 40 MG PO DAILY, #8 TAB Prov: MIKE GARCIA MD 07/25/17 Albuterol Sulfate (PROAIR HFA) 1 Puff Puff 1-4 PUFF IH Q4H PRN for SHORTNESS OF BREATH, #1 PUFF 2 Refills 1 PUFF = 90 MCG Prov: MIKE GARCIA MD 07/25/17 Copy Copies To 1: CORIN CALLE MD, JOSHUA T MD Jul 25, 2017 08:23
[2017-07-25 08:32] VITALS: BP 101/68
== END 2017-07-25 08:42 | disposition home or self-care (01) ==
LOC: EDUNIT# 06:51 → ER 06:52
DX: J44.1 Chronic obstructive pulmonary disease with (acute) exacerbation (principal); I25.10 Atherosclerotic heart disease of native coronary artery without angina pectoris; F17.290 Nicotine dependence, other tobacco product, uncomplicated; Z79.51 Long term (current) use of inhaled steroids; Z95.5 Presence of coronary angioplasty implant and graft; Z79.82 Long term (current) use of aspirin; Z79.52 Long term (current) use of systemic steroids; Z88.8 Allergy status to other drugs, medicaments and biological substances
CPT/HCPCS: 36415; 71045; 80053; 83735; 83880; 84484; 85025; 86141; 87804; 93005; 93041; 94640; 96374

== ENCOUNTER → 2018-07-29 | Outpatient (CLI) | payer MEDICARE, OTHER ==
[~2018-07-29] MED LIST changes: +PRD20T PO; +REGADENOSON 0.4 MG/5 ML SYR (LEXISCAN) IV ONE; +RT-ALBUINH IH
== END ==
LOC: RAD 09:47
PROVIDERS: ATTEND Internal Medicine Cardiovascular Disease
DX: I08.1 Rheumatic disorders of both mitral and tricuspid valves (principal); I25.10 Atherosclerotic heart disease of native coronary artery without angina pectoris; J44.9 Chronic obstructive pulmonary disease, unspecified; I50.9 Heart failure, unspecified
CPT/HCPCS: 93306

== ENCOUNTER → 2018-07-29 | Outpatient (CLI) | payer MEDICARE, OTHER ==
[~2018-07-29] MED LIST changes: +CATHETER FLUSH 10 ML SYR IV PRN
[2018-07-29 12:56] VITALS: BP 139/77
[2018-07-29 13:03] VITALS: BP 155/88
--- NOTE | 2018-07-29 19:59 | STRESS TEST ---
DATE OF SERVICE: 07/29/2018 LEXISCAN MYOVIEW STRESS TEST REPORT REFERRING PHYSICIAN: Dr. Santo Mcgee. INDICATION: Coronary artery disease. Baseline heart rate is 56. Baseline blood pressure 139/77. Baseline EKG is sinus rhythm with no ischemic changes. SUMMARY: The patient was injected with 10.45 mCi of technetium-99 Myoview and the resting images were obtained. Then, the patient received 0.4 mg of Lexiscan followed by 30.0 mCi of technetium-99 Myoview. Throughout the test, there were no EKG changes. The resting and stress images were reviewed and compared in the short axis, horizontal long axis, and vertical long axis views. Review of the images showed diaphragmatic attenuation with typical male pattern. No significant ischemia or infarction. SSS is 1, SDS 1, TID value 1.0. On the gated images, the left ventricle appeared to be normal size with normal contractility. Calculated ejection fraction 62%. CONCLUSION: 1. The patient tolerated Lexiscan well. 2. Typical male pattern with no significant ischemia or infarction on SPECT images. 3. Normal left ventricular size with normal contractility. Calculated ejection fraction 62%. Job ID: [id number] DocumentID: [id number] Dictated Date: 07/29/2018 15:18:43 Development Writer Date: 07/29/2018 19:58:43 Dictated By: MARIKA NELSON MD
== END ==
LOC: CARD 09:42
PROVIDERS: ATTEND Internal Medicine Cardiovascular Disease
DX: I25.10 Atherosclerotic heart disease of native coronary artery without angina pectoris (principal); I34.0 Nonrheumatic mitral (valve) insufficiency; I50.9 Heart failure, unspecified; R94.31 Abnormal electrocardiogram [ECG] [EKG]; J44.9 Chronic obstructive pulmonary disease, unspecified
CPT/HCPCS: 78452; 93017

== ENCOUNTER 2019-07-26 11:05 | Inpatient (IN) | payer MEDICARE, OTHER ==
[~2019-07-26] VITALS: Ht 165 cm; Wt 47.1 kg
[~2019-07-26 11:05] MED LIST changes: -CATHETER FLUSH 10 ML SYR IV PRN; -CLAR-19 PO; +CLAR-31 PO; -METO-387 PO; +MTP25TSR PO; -REGADENOSON 0.4 MG/5 ML SYR (LEXISCAN) IV ONE
[2019-07-26 11:18] LABS: ABG OXYGEN SATURATION 97 % (94-100); ABG PCO2 51 MMHG (35-45); ABG PO2 129 MMHG (79-93); ABG TCO2 20.8 MMOL/L (21.0-31.0)
[2019-07-26 11:20] LABS: BASOPHILS # (AUTO) 0.1 10^3/uL (0.0-0.1); BASOPHILS % (AUTO) 1 % (0-10); EOSINOPHILS # (AUTO) 0.4 10^3/uL (0.0-0.3); EOSINOPHILS % (AUTO) 6 % (0-10); HEMATOCRIT 47 % (40-54); HEMOGLOBIN 15.7 G/DL (13.3-17.7); LYMPHOCYTES # (AUTO) 2.7 X 10^3 (1.0-4.0); LYMPHOCYTES % (AUTO) 39 % (12-44); MEAN CORPUSCULAR HEMOGLOBIN 33 PG (25-34); MEAN CORPUSCULAR HGB CONC 33 G/DL (32-36); MEAN CORPUSCULAR VOLUME 100 FL (80-99); MEAN PLATELET VOLUME 11.1 FL (7.4-10.4); MONOCYTES # (AUTO) 0.7 X 10^3 (0.0-1.0); MONOCYTES % (AUTO) 10 % (0-12); NEUTROPHILS # (AUTO) 3.1 X 10^3 (1.8-7.8); NEUTROPHILS % (AUTO) 45 % (42-75); PLATELET COUNT 244 10^3/uL (130-400)
[2019-07-26 11:21] LABS: ABG PH 7.19 (7.37-7.43); ALLENS TEST YES-POS; INSPIRED O2 3 L; VENTILATOR NO
--- NOTE | 2019-07-26 11:25 | ED Respiratory ---
General Chief Complaint: Respiratory Problems Stated Complaint: SOB Nursing Triage Note: pt to rm 10 with complaint of soa for 2-3 days. denies travel or leaving home. Source: patient Exam Limitations: no limitations History of Present Illness Date Seen by Provider: Jul 26, 2019 Time Seen by Provider: 11:22 Initial Comments To ER by private vehicle with reports of shortness of breath for 2-3 days. He has a history of COPD. He has a nebulizer at home but quit working. Smokes one pack of cigarettes per day. Has had chills but no fever. Denies travel or leaving his house. Care was Dr. Santo Wyatt, states he hasn't seen him in over 2 years however. Timing/Duration: constant, getting worse Severity: moderate Associated Symptoms: cough, shortness of breath Allergies and Home Medications Allergies Coded Allergies: budesonide (Verified Allergy, Unknown, 07/26/19) formoterol (Verified Allergy, Unknown, 07/26/19) Home Medications Albuterol Sulfate 90 Mcg Aer.pow.ba, 1-2 PUFF INH Q4H PRN for SHORTNESS OF BREATH Prescribed by: MALAIKA CARDENAS on 07/26/16919 Albuterol Sulfate 1 Puff Puff, 1-4 PUFF IH Q4H PRN for SHORTNESS OF BREATH 1 PUFF = 90 MCG Prescribed by: MIKE PAYNE on 07/25/17822 Aspirin 81 Mg Tablet.dr, 81 MG PO DAILY Prescribed by: MARIKA NELSON on 07/26/16805 Lisinopril 10 Mg Tablet, 10 MG PO DAILY Prescribed by: MARIKA NELSON on 07/26/16805 Metoprolol Succinate 25 Mg Tab.er.24h, 25 MG PO DAILY Prescribed by: MARIKA NELSON on 07/26/16805 Prednisone 10 Mg Tab.ds.pk, 10 MG PO DAILY Take 6 tabs(60mg)daily,decrease by 1 tab(10MG)daily. Prescribed by: MALAIKA CARDENAS on 07/26/16919 Prednisone 20 Mg Tab, 40 MG PO DAILY Prescribed by: MIKE PAYNE on 07/25/17 0823 Ticagrelor 90 Mg Tablet, 90 MG PO BID Prescribed by: MARIKA NELSON on 07/26/16 08 Patient Home Medication List Home Medication List Reviewed: Yes Review of Systems Review of Systems Constitutional: see HPI, chills Respiratory: see HPI, cough, short of breath Cardiovascular: no symptoms reported Genitourinary: no symptoms reported Musculoskeletal: no symptoms reported Skin: no symptoms reported Psychiatric/Neurological: No Symptoms Reported Hematologic/Lymphatic: No Symptoms Reported Immunological/Allergic: no symptoms reported Past Uxjipnb-Fnbuqq-Wsguii Hx Patient Social History Alcohol Use: Occasionally Uses Number of Drinks Today: AA Alcohol Beverage of Choice: Beer Recreational Drug Use: No Smoking Status: Current Everyday Smoker Type Used: Cigars, Cigarettes 2nd Hand Smoke Exposure: Yes Recent Foreign Travel: No Contact w/Someone Who Travel: No Recent Infectious Disease Expo: No Recent Hopitalizations: No Immunizations Up To Date Tetanus Booster (TDap): Unknown PED Vaccines UTD: Yes Seasonal Allergies Seasonal Allergies: No Past Medical History Surgeries: Yes (ventral hernia, left ankle surgery) Coronary Stent Respiratory: Yes COPD, Emphysema Currently Using CPAP: No Currently Using BIPAP: No Cardiac: Yes Coronary Artery Disease Neurological: No Reproductive Disorders: No Genitourinary: No Gastrointestinal: No Musculoskeletal: No Endocrine: No HEENT: No Cancer: No Psychosocial: No Integumentary: No Blood Disorders: No Family Medical History Patient reports no known family medical history. Physical Exam Vital Signs - First Documented 07/26/19 11:06 Temp 35.6 Pulse 124 Resp 25 B/P (MAP) 149/103 (118) Pulse Ox 96 O2 Delivery Nasal Cannula O2 Flow Rate 3.00 Capillary Refill : Less Than 3 Seconds Height: 5'5.00" Weight: 120lbs. 0oz. [id number]; 19.00 BMI Method:Stated General Appearance: WD/WN, moderate distress, thin, other (diaphoretic) Eyes: Bilateral Eye Normal Inspection, Bilateral Eye PERRL, Bilateral Eye EOMI HEENT: PERRL/EOMI, normal ENT inspection Respiratory: decreased breath sounds, accessory muscle use, other (tripoding) Gastrointestinal: normal bowel sounds, soft Extremities: normal range of motion, non-tender Neurologic/Psychiatric: alert, normal mood/affect, oriented x 3 Skin: normal color, warm/dry Started on Bipap 12/6 30% fio2. Tolerating it well, states it helps. Progress/Results/Core Measures Suspected Sepsis Recent Fever Within 48 Hours: No Infection Criteria Present: None New/Unexplained Altered Menta: No Sepsis Screen: No Definite Risk SIRS Temperature: Pulse: 124 Respiratory Rate: 25 Laboratory Tests 07/26/19 11:10: White Blood Count 7.0 Blood Pressure 149 /103 Mean: 118 Laboratory Tests 07/26/19 11:10: Creatinine 1.02, INR Comment 1.0, Platelet Count 244, Total Bilirubin 0.3 Results/Orders Lab Results Laboratory Tests Test 07/26/19 11:10 07/26/19 11:12 07/26/19 11:30 Range/Units White Blood Count 7.0 4.3-11.0 10^3/uL Red Blood Count 4.74 4.35-5.85 10^6/uL Hemoglobin 15.7 13.3-17.7 G/DL Hematocrit 47 40-54 % Mean Corpuscular Volume 100 H 80-99 FL Mean Corpuscular Hemoglobin 33 25-34 PG Mean Corpuscular Hemoglobin Concent 33 32-36 G/DL Red Cell Distribution Width 14.0 10.0-14.5 % Platelet Count 244 130-400 10^3/uL Mean Platelet Volume 11.1 H 7.4-10.4 FL Neutrophils (%) (Auto) 45 42-75 % Lymphocytes (%) (Auto) 39 12-44 % Monocytes (%) (Auto) 10 0-12 % Eosinophils (%) (Auto) 6 0-10 % Basophils (%) (Auto) 1 0-10 % Neutrophils # (Auto) 3.1 1.8-7.8 X 10^3 Lymphocytes # (Auto) 2.7 1.0-4.0 X 10^3 Monocytes # (Auto) 0.7 0.0-1.0 X 10^3 Eosinophils # (Auto) 0.4 H 0.0-0.3 10^3/uL Basophils # (Auto) 0.1 0.0-0.1 10^3/uL Prothrombin Time 13.7 12.2-14.7 SEC INR Comment 1.0 0.8-1.4 Sodium Level 141 135-145 MMOL/L Potassium Level 4.8 3.6-5.0 MMOL/L Chloride Level 109 H 98-107 MMOL/L Carbon Dioxide Level 17 L 21-32 MMOL/L Anion Gap 15 H 5-14 MMOL/L Blood Urea Nitrogen 11 7-18 MG/DL Creatinine 1.02 0.60-1.30 MG/DL Estimat Glomerular Filtration Rate > 60 BUN/Creatinine Ratio 11 Glucose Level 223 H 70-105 MG/DL Calcium Level 9.0 8.5-10.1 MG/DL Corrected Calcium 9.1 8.5-10.1 MG/DL Total Bilirubin 0.3 0.1-1.0 MG/DL Aspartate Amino Transf (AST/SGOT) 23 5-34 U/L Alanine Aminotransferase (ALT/SGPT) 12 0-55 U/L Alkaline Phosphatase 98 40-136 U/L B-Type Natriuretic Peptide 110.7 H <100.0 PG/ML Total Protein 6.7 6.4-8.2 GM/DL Albumin 3.9 3.2-4.5 GM/DL Blood Gas Puncture Site RIGHT RADIAL Blood Gas Patient Temperature 96.0 Arterial Blood pH 7.19 *L 7.37-7.43 Arterial Blood Partial Pressure CO2 51 H 35-45 MMHG Arterial Blood Partial Pressure O2 129 H 79-93 MMHG Arterial Blood HCO3 19 L 23-27 MMOL/L Arterial Blood Total CO2 20.8 L 21.0-31.0 MMOL/L Arterial Blood Oxygen Saturation 97 94-100 % Arterial Blood Base Excess -8.0 L -2.5-2.5 MMOL/L Desean Test YES-POS Blood Gas Ventilator Setting NO Blood Gas Inspired Oxygen 3 L Troponin I < 0.028 <0.028 NG/ML My Orders Orders - ARIAS MCKEON APRN Bipap (Bilevel) Set Up (07/26/19 11:19) Albuterol/Ipra Inhalation Soln (Duoneb I (07/26/19 11:30) Svn Small Volume Nebulizer (07/26/19 11:19) Troponin I (07/26/19 11:35) Methylprednisolone Sod Succ (Solu-Medrol (07/26/19 11:45) Medications Given in ED Current Medications Medications Dose Ordered Sig/Sandeep Route Start Time Stop Time Status Last Admin Dose Admin Albuterol/ Ipratropium 3 ml ONCE ONCE INH 07/26/19 11:30 07/26/19 11:31 DC 07/26/19 11:43 3 ML Methylprednisolone Sodium Succinate 125 mg ONCE ONCE IVP 07/26/19 11:45 07/26/19 11:46 DC 07/26/19 12:24 125 MG Vital Signs/I&O 07/26/19 07/26/19 11:06 11:47 Temp 35.6 Pulse 124 78 Resp 25 21 B/P (MAP) 149/103 (118) Pulse Ox 96 100 O2 Delivery Nasal Cannula O2 Flow Rate 3.00 35.00 Capillary Refill : Less Than 3 Seconds Blood Pressure Mean: 118 Diagnostic Imaging Diagonstic Imaging: Xray Comments NAME: MECHELLE CABALLERO [facility] REC#: [id number] PT STATUS: REG ER : 1945 PHYSICIAN: BURAK RAJAN DO ADMIT DATE: 07/26/19/ER Draft Date of Exam:07/26/19 CHEST 1 VIEW, AP/PA ONLY INDICATION: Shortness of breath. COMPARISON: 9:00 AM exam. FINDINGS: Obstructive interstitial lung disease is again demonstrated with considerable air trapping bilaterally. No new infiltrates have developed. The heart is mildly enlarged. The aorta is atherosclerotic without aneurysm. No pneumothorax or pleural effusion. IMPRESSION: Obstructive interstitial lung disease without acute change. Dictated on workstation # [id number] Dict: 07/26/19 1144 Trans: 07/26/19 1146 [id number] Interpreted by: ROS ORDOÑEZ MD Electronically signed by: Departure Communication (Admissions) Time/Spoke to Admitting Phy: 12:04 Spoke with Santo Calle, doesn't recognize the patient, would like use hospitalist service. Spoke with Dr. Fernandes, will admit, Solu-Medrol Rocephin BiPAP. O2, inpatient status. Impression Primary Impression: RESPIRATORY FAILURE, UNSP, UNSP W HYPOXIA OR HYPERCAPNIA Disposition: ADMITTED INPATIENT Condition: Stable Admissions Decision to Admit Reason: Admit from ER (General) Decision to Admit/Date: Jul 26, 2019 Time/Decision to Admit Time: 12:05 Departure-Patient Inst. Referrals: SANTO CALLE MD (PCP/Family) Primary Care Physician ARIAS MCKEON APRN Jul 26, 2019 11:25
[2019-07-26 11:28] LABS: ALBUMIN 3.9 GM/DL (3.2-4.5); CHLORIDE 109 MMOL/L (98-107); POTASSIUM 4.8 MMOL/L (3.6-5.0); SODIUM 141 MMOL/L (135-145)
[2019-07-26 11:30] LABS: GLUCOSE 223 MG/DL (70-105); TOTAL PROTEIN 6.7 GM/DL (6.4-8.2)
[2019-07-26] MEDS ORDERED: RT-ALBUTEROL/IPRATROPIUM 3 ML (DUONEB) VIAL INH ONE (11:30)
[2019-07-26 11:31] LABS: CARBON DIOXIDE 17 MMOL/L (21-32)
[2019-07-26 11:32] LABS: BILIRUBIN,TOTAL 0.3 MG/DL (0.1-1.0)
[2019-07-26 11:34] LABS: ALKALINE PHOSPHATASE 98 U/L (40-136); CREATININE SERUM 1.02 MG/DL (0.60-1.30); GFR ESTIMATED > 60
[2019-07-26 11:35] LABS: BUN/CREATININE RATIO 11
[2019-07-26 11:36] LABS: PROTHROMBIN TIME PATIENT 13.7 SEC (12.2-14.7)
[2019-07-26 11:37] LABS: ALANINE AMINOTRANSFERASE 12 U/L (0-55)
[2019-07-26] MEDS ORDERED: methylPREDNISolone 125 MG (Solu-MEDROL) VIAL IVP ONE (11:45)
[2019-07-26 11:47] VITALS: BP 101/78
--- NOTE | 2019-07-26 11:47 | Diagnostic Imaging Report ---
INDICATION: Shortness of breath. COMPARISON: 9:00 AM exam. FINDINGS: Obstructive interstitial lung disease is again demonstrated with considerable air trapping bilaterally. No new infiltrates have developed. The heart is mildly enlarged. The aorta is atherosclerotic without aneurysm. No pneumothorax or pleural effusion. IMPRESSION: Obstructive interstitial lung disease without acute change. Dictated by: Dictated on workstation # [id number]
[2019-07-26] MEDS ORDERED: NS IV 500 ML 500 ML ONE (12:14)
--- NOTE | 2019-07-26 12:28 | NUR ---
REPORT TAKEN FROM NATIVIDAD CABALLERO AT THIS TIME. THIS RN WILL ASSUME CARE OF THIS PATIENT WHEN HE ARRIVES TO THIS FLOOR.
--- OUTSIDE RECORDS SUMMARY | 2019-07-26 12:28 | XMS REPORT ---
Author Author [facility] Organization [facility] Address [address] [address] Care Team Providers Care Magazine Designer Name Role Phone NO, LOCAL PHYSICIAN Unavailable Unavailable CORIN CALLE Unavailable MARIKA ECHEVARRIA MD Unavailable Unavailable CARDENAS DO, MALAIKA Unavailable Unavailable CARDENAS DO, MALAIKA Unavailable Unavailable MARIKA ECHEVARRIA MD Unavailable Unavailable CARDENAS DO, MALAIKA Unavailable Unavailable CARDENAS DO, MALAIKA Unavailable Unavailable MIKE GARCIA MD Unavailable Unavailable Allergies No Information Medications No Information Problems Active Problems Problem Normalized Date of Normalized Normalized Provider Fac ility Classification Problem(s) Problem Problem Problem Sta tus Onset/Resoluti Duration on Delirium, 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 CARDENAS , Not A 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 (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) amnestic and debility other cognitive disorders (8 sources.) Allergic Allergy status Episodic Active [facility] Via reactions (5 to other Zahra GARCIA sources.) drugs, [facility] and biological (57778) substances status Coronary Atheroscleroti Chronic Active MALAIKA CARDENAS , No t Available atherosclerosi c heart DO (14955) s and other disease of heart disease [place] (21 sources.) coronary artery without angina pectoris Translations: [ ISCHEMIC CARDIOMYOPATHY , ISCHEMIC CARDIOMYOPATHY ] Coronary Atheroscleroti no information Active MARIKA ECHEVARRIA , Not Available atherosclerosi c heart (40951) s and other disease of heart disease [place] (20 sources.) coronary artery without angina pectoris Translations: [ PRESENCE OF CORONARY ANGIOPLASTY IMPLANT, OLD MYOCARDIAL INFARCTION, PRESENCE OF CORONARY ANGIOPLASTY IMPLANT] Yuliana-; endo-; Cardiomyopathy Chronic Active MALAIKA CARDENAS , Not Available and , unspecified DO (86119) myocarditis; cardiomyopathy (8 sources.) Other Encounter for Episodic Active MARIKA ECHEVARRIA , Not Available aftercare (20 surgical MD (85004) sources.) aftercare following surgery on the circulatory system Congestive Heart failure, Chronic Active MALAIKA CARDENAS , N ot Available heart failure; unspecified DO (45246) nonhypertensiv Translations: e (15 [ ACUTE sources.) SYSTOLIC (CONGESTIVE) HEART FAILUR] Other lower Hypoxemia Episodic Active MALAIKA CARDENAS , Not A vailable respiratory DO (32107) disease (8 sources.) Other [facility] Episodic Active [facility] Via aftercare (5 (current) use Zahra GARCIA sources.) of aspirin [facility] (13629) Other [facility] Episodic Active [facility] Via aftercare (5 (current) use Zahra GARCIA sources.) of inhaled [facility] steroids [place] (70706) Other [facility] Episodic Active [facility] Via aftercare (5 (current) use Zahra GARCIA sources.) of systemic [facility] steroids [place] (25602) Substance-rela Nicotine Chronic Active MALAIKA CARDENAS , Not Available kisha disorders dependence, DO (08951) (13 sources.) other tobacco product, uncomplicated Translations: [ NICOTINE DEPENDENCE, CIGARETTES, UNCOMPL] Acute Non-ST Chronic Active MALAIKA CARDENAS , Not Avai lable myocardial elevation DO (17411) infarction (8 (NSTEMI) sources.) myocardial infarction Heart valve Nonrheumatic Chronic Active MALAIKA CARDENAS , No t Available disorders (20 mitral (valve) DO (50098) sources.) insufficiency Translations: [ RHEUMATIC TRICUSPID INSUFFICIENCY, 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, RHEUMATIC TRICUSPID INSUFFICIENCY] Other lower Other Episodic Active MALAIKA CARDENAS , Not Av ailable respiratory abnormalities DO (24069) disease (8 of breathing sources.) Other lower Shortness of Episodic Active [facility] Via respiratory breath Zahra GARCIA disease (5 [facility] - sources.) [place] (59656) Past or Other Problems Problem Normalized Date of Normalized Normalized Provider Fac ility Classification Problem(s) Problem Problem Problem Sta tus Onset/Resoluti Duration on Unclassified Abnormal Episodic Completed BASHAR OMAR , Not A vailable (10 sources.) electrocardiog (86987) gino [ECG] [EKG] Procedures Procedure Normalized Procedure Procedure Result Performer Facility Date DILATION OF 1 COR ART no information no name (no phone) Not Available (79581) WITH 2 DRUG-ELUT, FLUOROSCOPY OF LEFT no information no name (no phone) Not Av ailable (87415) HEART USING LOW [facility]MO FLUOROSCOPY OF MULT no information no name (no phone) Not Av ailable (87142) COR ART USING L OSM MEASURE OF CARDIAC no information no name (no phone) Not Yadira ilable (67688) SAMPL PRESSURE, L H Immunizations No Information Results No Information Vital Signs The data below is from unstructured sources Vital Response Date/Time Temperature (Fahrenheit) 97.8 degree s F (97.6 - 99.5) 07/26/2016 8:00am Temperature (Calculated Celsius) 36. 61962 degrees C (36.4 - 37.5) 07/26/2016 8:00am Temperature Source Tympanic 07/26/2016 8:00am Pulse Rate (adult) 114 bpm (60 - 90) 07/26/2016 8:00am Respiratory Rate 22 bpm (12 - 24) 07/26/2016 8:00am O2 Sat by Pulse Oximetry 99 % (88 - 100) 07/26/2016 10:09am Blood Pressure 144/75 mm Hg 07/26/2016 8:00am Blood Pressure Mean 98 mm Hg 07/26/2016 8:00am Pain Numeric Pain Scale 0-No Pain 07/26/2016 8:00am Height (Feet) 5 feet 5:24am Height (Inches) 5.00 inches 07/25/2016 5:24am Height (Calculated Centimeters) 165. 933240 cm 07/25/2016 5:24am Weight (Pounds) 106 pounds 07/25/2016 5:54am Weight (Ounces) 4.0 oz 0 07/25/2016 5:54am Weight (Calculated Grams) 03465.190 gm 07/25/2016 5:54am Weight (Calculated Kilograms) 48.194 190 kilograms 07/25/2016 5:54am Calculated BMI 17.7 06/30 5:24am Capillary Refill Capillary Refill Less Than 3 Seconds 07/25/2016 6:30pm Vital Response Date/Time Temperature (Fahrenheit) 97.6 degree s F (97.6 - 99.5) 07/25/2017 8:32am Temperature (Calculated Celsius) 36. 50748 degrees C (36.4 - 37.5) 07/25/2017 8:32am Temperature Source Oral 07/25/2017 8:32am Pulse Rate (adult) 109 bpm (60 - 90) 07/25/2017 8:32am Respiratory Rate 28 bpm (12 - 24) 07/25/2017 8:32am O2 Sat by Pulse Oximetry 96 % (88 - 100) 07/25/2017 8:32am Blood Pressure 101/68 mm Hg 07/25/2017 8:32am Blood Pressure Mean 110 mm Hg (65 - 110) 07/25/2017 8:32am Pain Numeric Pain Scale 0-No Pain 07/25/2017 8:32am Height (Feet) 5 feet 6:56am Height (Inches) 5.00 inches 07/25/2017 6:56am Height (Calculated Centimeters) 165. 149397 cm 07/25/2017 6:56am Height Method Stated 6:56am Weight (Pounds) 120 pounds 07/25/2017 6:56am Weight (Ounces) 0 oz 6:56am Weight (Calculated Grams) 95529.09 gm 07/25/2017 6:56am Weight (Calculated Kilograms) 54.431 085 kilograms 07/25/2017 6:56am Weight Method Stated 6:56am Capillary Refill Capillary Refill Less Than 3 Seconds 07/25/2017 6:56am Height 5 ft 5 in 018 6:56am Weight 120 lb 07/25/2017 6:56am Body Mass Index 20.0 kg/m^2 07/25/2017 6:56am Vital Response Date/Time Temperature (Fahrenheit) 97.6 degree s F (97.6 - 99.5) 07/25/2017 8:32am Temperature (Calculated Celsius) 36. 41967 degrees C (36.4 - 37.5) 07/25/2017 8:32am Temperature Source Oral 07/25/2017 8:32am Pulse Rate (adult) 109 bpm (60 - 90) 07/25/2017 8:32am Respiratory Rate 28 bpm (12 - 24) 07/25/2017 8:32am O2 Sat by Pulse Oximetry 96 % (88 - 100) 07/25/2017 8:32am Blood Pressure 101/68 mm Hg 07/25/2017 8:32am Blood Pressure Mean 110 mm Hg (65 - 110) 07/25/2017 8:32am Pain Numeric Pain Scale 0-No Pain 07/25/2017 8:32am Height (Feet) 5 feet 6:56am Height (Inches) 5.00 inches 07/25/2017 6:56am Height (Calculated Centimeters) 165. 496092 cm 07/25/2017 6:56am Height Method Stated 6:56am Weight (Pounds) 120 pounds 07/25/2017 6:56am Weight (Ounces) 0 oz 6:56am Weight (Calculated Grams) 17319.09 gm 07/25/2017 6:56am Weight (Calculated Kilograms) 54.431 085 kilograms 07/25/2017 6:56am Weight Method Stated 6:56am Capillary Refill Capillary Refill Less Than 3 Seconds 07/25/2017 6:56am Height 5 ft 5 in 018 6:56am Weight 120 lb 07/25/2017 6:56am Body Mass Index 20.0 kg/m^2 07/25/2017 6:56am Interventions No Information Plan of Treatment The data below is from unstructured sources Discharge Date 07/26/16 10:50am Disposition 01 HOME, SELF-CARE Instructions/Education Provided SMOK ING CESSATION Forms Provided Follow-Up Fax Prescriptions See Medication Section Referrals (Unspecified) Order Date: Series Order Entered Date: 07/26/2016 9:40am Reason(s) for Referral: RESPIRATORY FAILURE, UNSP, UNSP W HYPOXIA OR HYPERCAPNIA Additional Instructions/Education Fo llow up with Dr. Echevarria on July 29 at 1:20 Care Plan and Goals See Discharge In structions Section Prescriptions See Medication Section Discharge Date 07/25/17 8:42am Disposition 01 HOME, SELF-CARE Condition at Discharge Improved Instructions/Education Provided Inventory Control Manager rachel Obstructive Pulmonary Disease (COPD), Including Emphysema Prescriptions See Medication Section Referrals CORIN CALLE MD Order Date: Primary Care Physician Address: [address] [place] [id number] Additional Instructions/Education Ta ke your Bevespi 2 puffs twice daily as a maintenance medication. Use your albuterol rescue inhaler (Pro Air) when you do not have a nebulizer available and are feeling short of air. Complete the prednisone as prescribed. Return to the emergency room if you have worsening symptoms. Follow-up with Dr. Calle as soon as possible. Work toward quitting smoking and seek assistance from Dr. Calle if needed. All discharge instructions reviewed with patient and/or family. Voiced understanding. Discharge Date 07/25/17 8:42am Disposition 01 HOME, SELF-CARE Condition at Discharge Improved Instructions/Education Provided Inventory Control Manager rachel Obstructive Pulmonary Disease (COPD), Including Emphysema Prescriptions See Medication Section Referrals CORIN CALLE MD Order Date: Primary Care Physician Address: [address] [place] [address] [id number] Additional Instructions/Education Ta ke your Bevespi 2 puffs twice daily as a maintenance medication. Use your albuterol rescue inhaler (Pro Air) when you do not have a nebulizer available and are feeling short of air. Complete the prednisone as prescribed. Return to the emergency room if you have worsening symptoms. Follow-up with Dr. Calle as soon as possible. Work toward quitting smoking and seek assistance from Dr. Calle if needed. All discharge instructions reviewed with patient and/or family. Voiced understanding. Goals No Information Social History No Information Functional Status The data below is from unstructured sources Query Response Date Loco rded Patient Orientation Person Place Time Situation Eyes Open July 26, 2016 9:00am Comprehension Ability Understands Co ncepts July 25, 2016 5:28am No functional status information available. Mental Status No Information Encounters Encounter Normalized Encounter Encounter Diagnosis Care Provi reinier Organization Date Type 07-25-2016 Emergency department no information no name (no renetta ne) no organization name patient visit (no phone) 07-25-2017 Patient encounter no information no name (no phone) no organization name (no phone) 04-09-2017 Patient encounter no information no name (no phone) no organization name (no phone) 01-29-2017 Patient encounter no information no name (no phone) no organization name (no phone) 11-08-2016 Patient encounter no information no name (no phone) no organization name (no phone) 07-29-2018 Patient encounter no information no name (no phone) no organization name procedure (no phone) 07-29-2018 Patient encounter no information no name (no phone) no organization name procedure (no phone) 11-04-2016 Patient encounter no information no name (no phone) no organization name - procedure (no phone) 11-07-2016 11-01-2016 Patient encounter no information no name (no phone) no organization name procedure (no phone) 10-30-2016 Patient encounter no information no name (no phone) no organization name procedure (no phone) 10-28-2016 Patient encounter no information no name (no phone) no organization name procedure (no phone) 2016 Patient encounter no information no name (no phone) no organization name procedure (no phone) 10-23-2016 Patient encounter no information no name (no phone) no organization name procedure (no phone) 10-21-2016 Patient encounter no information no name (no phone) no organization name procedure (no phone) 10-18-2016 Patient encounter no information no name (no phone) no organization name procedure (no phone) 10-16-2016 Patient encounter no information no name (no phone) no organization name procedure (no phone) 10-14-2016 Patient encounter no information no name (no phone) no organization name procedure (no phone) 10-11-2016 Patient encounter no information no name (no phone) no organization name procedure (no phone) 10-09-2016 Patient encounter no information no name (no phone) no organization name procedure (no phone) 10-07-2016 Patient encounter no information no name (no phone) no organization name procedure (no phone) 10-04-2016 Patient encounter no information no name (no phone) no organization name procedure (no phone) 10-02-2016 Patient encounter no information no name (no phone) no organization name procedure (no phone) 09-25-2016 Patient encounter no information no name (no phone) no organization name procedure (no phone) 09-23-2016 Patient encounter no information no name (no phone) no organization name procedure (no phone) 09-20-2016 Patient encounter no information no name (no phone) no organization name procedure (no phone) 09-18-2016 Patient encounter no information no name (no phone) no organization name procedure (no phone) 09-16-2016 Patient encounter no information no name (no phone) no organization name procedure (no phone) 09-13-2016 Patient encounter no information no name (no phone) no organization name procedure (no phone) 09-09-2016 Patient encounter no information no name (no phone) no organization name procedure (no phone) 09-06-2016 Patient encounter no information no name (no phone) no organization name procedure (no phone) 09-04-2016 Patient encounter no information no name (no phone) no organization name procedure (no phone) 09-02-2016 Patient encounter no information no name (no phone) no organization name procedure (no phone) 08-30-2016 Patient encounter no information no name (no phone) no organization name procedure (no phone) 08-28-2016 Patient encounter no information no name (no phone) no organization name procedure (no phone) 08-23-2016 Patient encounter no information no name (no phone) no organization name procedure (no phone) 08-19-2016 Patient encounter no information no name (no phone) no organization name procedure (no phone) 08-16-2016 Patient encounter no information no name (no phone) no organization name procedure (no phone) 07-25-2016 Patient encounter no information no name (no phone) no organization name - procedure (no phone) 07-26-2016 Medical Equipment No Information Payers No Information Advance Directives Directive Response Recor ded Date/Time Advance Directives No 5:16am Health Care Power of Hotel Concierge No 07/25/16 5:16am Organ Donor No 07/25/16 5:16am Resuscitation Status Full Code 07/25/16 5:16am Directive Response Recor ded Date/Time Advance Directives No 5:16am Health Care Power of Hotel Concierge No 07/25/16 5:16am Organ Donor No 07/25/16 5:16am Directive Response Recor ded Date/Time Advance Directives No 7:03am Health Care Power of Hotel Concierge No 07/25/17 7:03am Organ Donor No 07/25/17 7:03am Resuscitation Status Full Code 07/25/17 7:03am Discharge Instructions Patient Instructions Physician Instructions Follow Up/Plan Appointment with Dr. Echevarria's office next week CARDIAC CATH DISCHARGE INSTRUCTIONS *Hold Metformin for 48 hours post heart cath. ACTIVITY * Go Home directly and rest. * Limit activity of the leg (or wrist if it was used) for 7 days including aerobics, swimming, jogging, bicycling, etc. * Restrict stair-climbing for 7 days if possible, if not, climb up with your non-cath leg, then bring together on the same step. * Avoid lifting, pushing, pulling or excessive movement of the affected extremity for 7 days. * Customary sexual activity may be resumed after 2 days-use caution not to use a position that strains or causes pain to the affected extremity. * No driving for 24 hours. * NO SMOKING. * Avoid straining for bowel movements for 7 days. * Gentle walking on level ground is allowed. * Returning to work will depend on the type of procedure and the results. Your doctor will discuss this with you. CALL YOUR DOCTOR FOR ANY OF THE FOLLOWING: *If bleeding from the puncture site occurs- Apply gentle pressure to site with clean cloth and call your doctor or EMS. * If a knot or lump forms under the skin, increases in size, or causes pain. * If bruising appears to be worsening or moving further down your leg instead of disappearing. * Temperature above 101 F. CARE OF YOUR GROIN INCISION; * Bruising or purple discoloration of the skin near the puncture site is common. * You may shower only, no bathtub bathing for 5 days. Be careful to avoid slipping as your leg may feel stiff. * If a closure device was used on your femoral artery, please see the attached guide regarding care of the device and your leg. * REMOVE the dressing from your groin the next day after your procedure in the shower. CARE OF YOUR WRIST INCISION; * Bruising or purple discoloration of the skin near the puncture site is common. * You may shower. * DO NOT submerge wrist. * Remove dressing in 24 hours. No hospital discharge instruction information available.No hospital discharge i nstruction information available.No hospital discharge instruction information a vailable. Additional Source Comments This clinical document has been generated using [employer] software that has been certified by the Office of the National Coordinator for Health Information Technology (ONC 15.99.04.3023.Diam.31.00.0.956690) and the National Committee for Employment Appeals Examiner (NCQA, as an eMeasure certified technology). FOR RECORDS PERTAINING TO PATIENTS WHO ARE OR HAVE BEEN ENROLLED IN A CHEMICAL D EPENDENCY/SUBSTANCE ABUSE PROGRAM, SOME INFORMATION MAY BE OMITTED. This clinica l summary was aggregated from multiple sources. Caution should be exercised in using it in the provision of clinical care. This summary normalizes information from multiple sources, and as a consequence, information in this document may ma terially change the coding, format and clinical context of patient data. In álvaro tion, data may be omitted in some cases. CLINICAL DECISIONS SHOULD BE BASED ON T HE PRIMARY CLINICAL RECORDS. [employer] [facility]. provides no warranty or guara ntee of the accuracy or completeness of information in this document.The followi ng information is based on time limited clinical information
--- OUTSIDE RECORDS SUMMARY | 2019-07-26 12:28 | XMS REPORT | Continuity of Care Document ---
Author Organization Unknown Address Unknown Phone Unavailable Allergies Active Description Code Type Severity Reaction Onset Reported/Identified Relationship to Patient Clinical Status Yes No Known Drug Allergies [id number] Drug Allergy Unknown N/A 07/25/2016 Yes budesonide [id number] Drug Allerg y Unknown N/A 07/26/2016 Yes formoterol [id number] Drug Allerg y Unknown N/A 07/26/2016 Medications There is no data. Problems Date Dx Coded Attending Type Code Diagnosis Diagnosed By 07/26/2016 MALAIKA CARDENAS DO, Ot E87.5 HYPERKALEMIA 07/26/2016 MALAIKA CARDENAS DO Ot F17.21 0 NICOTINE DEPENDENCE, CIGARETTES, UNCOMPL 07/26/2016 MALAIKA CARDENAS DO Ot I08.1 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 07/26/2016 MALAIKA CARDENAS DO Ot I21.4 NON-ST ELEVATION (NSTEMI) MYOCARDIAL INF 07/26/2016 MALAIKA CARDENAS DO Ot I25.10 ATHSCL HEART DISEASE OF [place] CORONARY 07/26/2016 MALAIKA CARDENAS DO Ot I25.5 ISCHEMIC CARDIOMYOPATHY 07/26/2016 MALAIKA CARDENAS DO Ot I42.9 CARDIOMYOPATHY, UNSPECIFIED 07/26/2016 MALAIKA CARDENAS DO Ot I50.21 ACUTE SYSTOLIC (CONGESTIVE) HEART FAILUR 07/26/2016 MALAIKA CARDENAS DO Ot J44.1 CHRONIC OBSTRUCTIVE PULMONARY DISEASE W 07/26/2016 MALAIKA CARDENAS DO Ot R06.89 OTHER ABNORMALITIES OF BREATHING 07/26/2016 MALAIKA CARDENAS DO Ot R09.02 HYPOXEMIA 07/26/2016 MALAIKA CARDENAS DO Ot R54 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 2 OLD MYOCARDIAL INFARCTION 08/12/2016 MARIKA NELSON MD Ot Z48.812 ENCNTR FOR SURGICAL AFTCR FOLLOWING SURG 08/12/2016 MARIKA NELSON MD Ot Z95. 5 PRESENCE OF CORONARY ANGIOPLASTY IMPLANT 09/20/2016 MARIKA NELSON MD Ot I25. 2 OLD MYOCARDIAL INFARCTION 09/20/2016 MARIKA NELSON MD Ot Z48.812 ENCNTR FOR SURGICAL AFTCR FOLLOWING SURG 09/20/2016 MARIKA NELSON MD Ot Z95. 5 PRESENCE OF CORONARY ANGIOPLASTY IMPLANT 10/03/2016 MARIKA NELSON MD Ot I25. 2 OLD MYOCARDIAL INFARCTION 10/03/2016 MARIKA NELSON MD Ot Z48.812 ENCNTR FOR SURGICAL AFTCR FOLLOWING SURG 10/03/2016 MARIKA NELSON MD Ot Z95. 5 PRESENCE OF CORONARY ANGIOPLASTY IMPLANT 2016 MARIKA NELSON MD Ot I25. 2 OLD MYOCARDIAL INFARCTION 2016 MARIKA NELSON MD Ot Z48.812 ENCNTR FOR SURGICAL AFTCR FOLLOWING SURG 2016 MARIKA NELSON MD Ot Z95. 5 PRESENCE OF CORONARY ANGIOPLASTY IMPLANT 11/07/2016 MARIKA NELSON MD Ot I25. 2 OLD MYOCARDIAL INFARCTION 11/07/2016 MARIKA NELSON MD Ot Z48.812 ENCNTR FOR SURGICAL AFTCR FOLLOWING SURG 11/07/2016 MARIKA NELSON MD Ot Z95. 5 PRESENCE OF CORONARY ANGIOPLASTY IMPLANT 11/07/2016 MARIKA NELSON MD Ot I25. 2 OLD MYOCARDIAL INFARCTION 11/07/2016 MARIKA NELSON MD Ot Z48.812 ENCNTR FOR SURGICAL AFTCR FOLLOWING SURG 11/07/2016 MARIKA NELSON MD Ot Z95. 5 PRESENCE OF CORONARY ANGIOPLASTY IMPLANT 01/22/2017 MARIKA NELSON MD Ot I25. 2 OLD MYOCARDIAL INFARCTION 01/22/2017 MARIKA NELSON MD Ot Z48.812 ENCNTR FOR SURGICAL AFTCR FOLLOWING SURG 01/22/2017 MARIKA NELSON MD Ot Z95. 5 PRESENCE OF CORONARY ANGIOPLASTY IMPLANT 02/21/2017 MARIKA NELSON MD Ot I07. 1 RHEUMATIC TRICUSPID INSUFFICIENCY 02/21/2017 MARIKA NELSON MD Ot I25. 10 ATHSCL HEART DISEASE OF [place] CORONARY 02/21/2017 MARIKA NELSON MD Ot I34. 0 NONRHEUMATIC MITRAL (VALVE) INSUFFICIENC 02/21/2017 MARIKA NELSON MD Ot I50. 9 HEART FAILURE, UNSPECIFIED 02/21/2017 MARIKA NELSON MD Ot R94. 31 ABNORMAL ELECTROCARDIOGRAM [ECG] [EKG] 02/26/2017 MARIKA NELSON MD Ot I07. 1 RHEUMATIC TRICUSPID INSUFFICIENCY 02/26/2017 MARIKA NELSON MD Ot I25. 10 ATHSCL HEART DISEASE OF [place] CORONARY 02/26/2017 MARIKA NELSON MD Ot I34. 0 NONRHEUMATIC MITRAL (VALVE) INSUFFICIENC 02/26/2017 MARIKA NELSON MD Ot I50. 9 HEART FAILURE, UNSPECIFIED 02/26/2017 MARIKA NELSON MD Ot R94. 31 ABNORMAL ELECTROCARDIOGRAM [ECG] [EKG] 04/30/2017 MARIKA NELSON MD Ot I07. 1 RHEUMATIC TRICUSPID INSUFFICIENCY 04/30/2017 MARIKA NELSON MD Ot I25. 10 ATHSCL HEART DISEASE OF [place] CORONARY 04/30/2017 MARIKA NELSON MD Ot I34. 0 NONRHEUMATIC MITRAL (VALVE) INSUFFICIENC 04/30/2017 MARIKA NELSON MD, Ot J44. 9 CHRONIC OBSTRUCTIVE PULMONARY DISEASE, U 04/30/2017 MARIKA NELSON MD Ot R94. 31 ABNORMAL ELECTROCARDIOGRAM [ECG] [EKG] 05/07/2017 MARIKA NELSON MD Ot I07. 1 RHEUMATIC TRICUSPID INSUFFICIENCY 05/07/2017 MARIKA NELSON MD Ot I25. 10 ATHSCL HEART DISEASE OF [place] CORONARY 05/07/2017 MARIKA NELSON MD Ot I34. 0 NONRHEUMATIC MITRAL (VALVE) INSUFFICIENC 05/07/2017 MARIKA NELSON MD, Ot J44. 9 CHRONIC OBSTRUCTIVE PULMONARY DISEASE, U 05/07/2017 MARIKA NELSON MD Ot R94. 31 ABNORMAL ELECTROCARDIOGRAM [ECG] [EKG] 07/25/2017 MIKE GARCIA MD Ot F17.290 NICOTINE DEPENDENCE, OTHER TOBACCO PRODU 07/25/2017 MIKE GARCIA MD Ot I25.10 ATHSCL HEART DISEASE OF [place] CORONARY 07/25/2017 MIKE GARCIA MD Ot J44.1 CHRONIC OBSTRUCTIVE PULMONARY DISEASE W 07/25/2017 MIKE GARCIA MD Ot R06.02 SHORTNESS OF BREATH 07/25/2017 MIKE GARCIA MD Ot Z79.51 CARE HOME (CURRENT) USE OF INHALED STERO 07/25/2017 MIKE GARCIA MD Ot Z79.52 CARE HOME (CURRENT) USE OF SYSTEMIC STER 07/25/2017 MIKE GARCIA MD Ot Z79.82 CARE HOME (CURRENT) USE OF ASPIRIN 07/25/2017 MIKE GARCIA MD Ot Z88.8 ALLERGY STATUS TO OTH DRUG/MEDS/BIOL SUB 07/25/2017 MIKE GARCIA MD Ot Z95.5 PRESENCE OF CORONARY ANGIOPLASTY IMPLANT 07/28/2017 MIKE GARCIA MD Ot F17.290 NICOTINE DEPENDENCE, OTHER TOBACCO PRODU 07/28/2017 MIKE GARCIA MD Ot I25.10 ATHSCL HEART DISEASE OF [place] CORONARY 07/28/2017 MIKE GARCIA MD, Ot J44.1 CHRONIC OBSTRUCTIVE PULMONARY DISEASE W 07/28/2017 MIKE GARCIA MD Ot R06.02 SHORTNESS OF BREATH 07/28/2017 MIKE GARCIA MD, Ot Z79.51 [employer] (CURRENT) USE OF INHALED STERO 07/28/2017 MIKE GARCIA MD Ot Z79.52 [employer] (CURRENT) USE OF SYSTEMIC STER 07/28/2017 MIKE GARCIA MD Ot Z79.82 CARE HOME (CURRENT) USE OF ASPIRIN 07/28/2017 MIKE GARCIA MD Ot Z88.8 ALLERGY STATUS TO OT DRUG/MEDS/BIOL SUB 07/28/2017 MIKE GARCIA MD Ot Z95.5 PRESENCE OF CORONARY ANGIOPLASTY IMPLANT 07/28/2018 MARIKA NELSON MD Ot I25. 2 OLD MYOCARDIAL INFARCTION 07/28/2018 MARIKA NELSON MD, Ot Z48.812 ENCNTR FOR SURGICAL AFTCR FOLLOWING SURG 07/28/2018 MARIKA NELSON MD Ot Z95. 5 PRESENCE OF CORONARY ANGIOPLASTY IMPLANT 07/28/2018 MARIKA NELSON MD Ot I07. 1 RHEUMATIC TRICUSPID INSUFFICIENCY 07/28/2018 OMAR MD, BASHAR J Ot I25. 10 ATHSCL HEART DISEASE OF [place] CORONARY 07/28/2018 MARIKA NELSON MD Ot I34. 0 NONRHEUMATIC MITRAL (VALVE) INSUFFICIENC 07/28/2018 MARIKA NELSON MD Ot I50. 9 HEART FAILURE, UNSPECIFIED 07/28/2018 MARIKA NELSON MD Ot R94. 31 ABNORMAL ELECTROCARDIOGRAM [ECG] [EKG] 07/28/2018 MARIKA NELSON MD Ot I07. 1 RHEUMATIC TRICUSPID INSUFFICIENCY 07/28/2018 MARIKA NELSON MD Ot I25. 10 ATHSCL HEART DISEASE OF [place] CORONARY 07/28/2018 MARIKA NELSON MD Ot I34. 0 NONRHEUMATIC MITRAL (VALVE) INSUFFICIENC 07/28/2018 MARIKA NELSON MD, Ot J44. 9 CHRONIC OBSTRUCTIVE PULMONARY DISEASE, U 07/28/2018 MARIKA NELSON MD Ot R94. 31 ABNORMAL ELECTROCARDIOGRAM [ECG] [EKG] 08/20/2018 MARIKA NELSON MD Ot I08. 1 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 08/20/2018 MARIKA NELSON MD Ot I25. 10 ATHSCL HEART DISEASE OF [place] CORONARY 08/20/2018 MARIKA NELSON MD Ot I50. 9 HEART FAILURE, UNSPECIFIED 08/20/2018 MARIKA NELSON MD, Ot J44. 9 CHRONIC OBSTRUCTIVE PULMONARY DISEASE, U 08/20/2018 MARIKA NELSON MD Ot I25. 10 ATHSCL HEART DISEASE OF [place] CORONARY 08/20/2018 MARIKA NELSON MD Ot I34. 0 NONRHEUMATIC MITRAL (VALVE) INSUFFICIENC 08/20/2018 MARIKA NELSON MD Ot I50. 9 HEART FAILURE, UNSPECIFIED 08/20/2018 MARIKA NELSON MD, Ot J44. 9 CHRONIC OBSTRUCTIVE PULMONARY DISEASE, U 08/20/2018 MARIKA NELSON MD Ot R94. 31 ABNORMAL ELECTROCARDIOGRAM [ECG] [EKG] Procedures Code Description Performed By [place] shamir On [id number] DI LATION OF 1 COR ART WITH 2 DRUG-ELUT, 07/25/2016 [id number] ME ASURE OF CARDIAC SAMPL PRESSURE, L H 07/25/2016 [id number] FL UOROSCOPY OF MULT COR ART USING L OSM 07/25/2016 [id number] FL UOROSCOPY OF LEFT HEART USING LOW OSMO 07/25/2016 Results Test Result Range Complete blood count (CBC) with automate d white blood cell (WBC) differential - 07/25/16 01:50 Blood leukocytes automated count (number/volume) 8.1 10*3/uL 4.3-11.0 Blood erythrocytes automated count (number/volume) 4.93 10*6/uL 4.35-5.85 Venous blood hemoglobin measurement (mass/volume) 16.0 g/dL 13.3-17.7 Blood hematocrit (volume fraction) 49 % 40-54 Automated erythrocyte mean corpuscular volume 100 [foz_us] 80-99 Automated erythrocyte mean corpuscular h emoglobin (mass per erythrocyte) 33 pg 25-34 Automated erythrocyte mean corpuscular h emoglobin concentration measurement (mass/volume) 32 g/dL 32-36 Automated erythrocyte distribution width ratio 13. 2 % 10.0- 14.5 Automated blood platelet count (count/volume) 222 10*3/uL 130-400 Automated blood platelet mean volume measurement 11.8 [foz_us] 7.4-10.4 Automated blood neutrophils/100 leukocytes 39 % 42-75 Automated blood lymphocytes/100 leukocytes 41 % 12-44 Blood monocytes/100 leukocytes 10 % 0-12 Automated blood eosinophils/100 leukocytes 10 % 0-10 Automated blood basophils/100 leukocytes 1 % 0-10 Blood neutrophils automated count (number/volume) 3.2 10*3 1.8-7.8 Blood lymphocytes automated count (number/volume) 3.3 10*3 1.0-4.0 Blood monocytes automated count (number/volume) 0. 8 10*3 0.0-1.0 Automated eosinophil count 0.8 10*3/uL 0 .0-0.3 Automated blood basophil count (count/volume) 0.1 10*3/uL 0.0-0.1 PT panel in platelet poor plasma by coag ulation assay - 07/25/16 01:50 Prothrombin time (PT) in platelet poor plasma by coagu lation assay 13.0 s 12.2-14.7 INR in platelet poor plasma or blood by coagulation as say 1.0 0.8-1.4 Activated partial thromboplastin time (a PTT) in platelet poor plasma bycoagulation assay - 07/25/16 01:50 Activated partial thromboplastin time (a PTT) in platelet poor plasma bycoagulation assay 26 s 24-35 Blood lactic acid measurement (moles/vol ume) - 07/25/16 01:50 Blood lactic acid measurement (moles/volume) 8.71 mmol/L 0.50-2.00 Comprehensive metabolic panel - 07/25/16 01:50 Serum or plasma sodium measurement (moles/volume) 142 mmol/L 135-145 Serum or plasma potassium measurement (moles/volume) 5.3 mmol/L 3.6-5.0 Serum or plasma chloride measurement (moles/volume) 105 mmol/L 98-107 Carbon dioxide 20 mmol/L 21-32 Serum or plasma anion gap determination (moles/volume) 17 mmol/L 5-14 Serum or plasma urea nitrogen measurement (mass/volume ) 8 mg/dL 7-18 Serum or plasma creatinine measurement (mass/volume) 1.05 mg/dL 0.60-1.30 Serum or plasma urea nitrogen/creatinine mass ratio 8 NRG Serum or plasma creatinine measurement w ith calculation of estimated glomerular filtration rate > NRG Serum or plasma glucose measurement (mass/volume) 136 mg/dL 70-105 Serum or plasma calcium measurement (mass/volume) 10.0 mg/dL 8.5-10.1 Serum or plasma total bilirubin measurement (mass/volu me) 0.3 mg/dL 0.1-1.0 Serum or plasma alkaline phosphatase lindsay surement (enzymatic activity/volume) 106 U/L 40-136 Serum or plasma aspartate aminotransfera se measurement (enzymatic activity/volume) 23 U/L 5-34 Serum or plasma alanine aminotransferase measurement (enzymatic activity/volume) 15 U/L 0-55 Serum or plasma protein measurement (mass/volume) 7.4 g/dL 6.4-8.2 Serum or plasma albumin measurement (mass/volume) 4.4 g/dL 3.2-4.5 Serum or plasma troponin i.cardiac measu rement (mass/volume) - 07/25/16 01:50 Serum or plasma troponin i.cardiac measurement (mass/v olume) < ng/mL <0.30 Bacterial blood culture - 07/25/16 01:50 Bacterial blood culture NG NRG Influenza virus A and B antigen detectio n - 07/25/16 02:16 FLU RESULT NEGATIVE FOR INFLUENZA A AND B ANTIGENS BY IA NRG Serum or plasma lactate measurement (mol es/volume) - 07/25/16 02:49 Serum or plasma lactate measurement (moles/volume) 2.35 mmol/L 0.50-2.00 Bacterial blood culture - 07/25/16 02:49 Bacterial blood culture NG NRG Complete blood count (CBC) with automate d white blood cell (WBC) differential - 07/25/16 08:10 Blood leukocytes automated count (number/volume) 6.2 10*3/uL 4.3-11.0 Blood erythrocytes automated count (number/volume) 4.49 10*6/uL 4.35-5.85 Venous blood hemoglobin measurement (mass/volume) 15.1 g/dL 13.3-17.7 Blood hematocrit (volume fraction) 44 % 40-54 Automated erythrocyte mean corpuscular volume 99 [ foz_us] 80-99 Automated erythrocyte mean corpuscular h emoglobin (mass per erythrocyte) 34 pg 25-34 Automated erythrocyte mean corpuscular h emoglobin concentration measurement (mass/volume) 34 g/dL 32-36 Automated erythrocyte distribution width ratio 13. 0 % 10.0- 14.5 Automated blood platelet count (count/volume) 174 10*3/uL 130-400 Automated blood platelet mean volume measurement 11.3 [foz_us] 7.4-10.4 Automated blood neutrophils/100 leukocytes 94 % 42-75 Automated blood lymphocytes/100 leukocytes 5 % 12-44 Blood monocytes/100 leukocytes 1 % 0-12 Automated blood eosinophils/100 leukocytes 0 % 0-10 Automated blood basophils/100 leukocytes 0 % 0-10 Blood neutrophils automated count (number/volume) 5.9 10*3 1.8-7.8 Blood lymphocytes automated count (number/volume) 0.3 10*3 1.0-4.0 Blood monocytes automated count (number/volume) 0. 0 10*3 0.0-1.0 Automated eosinophil count 0.0 10*3/uL 0 .0-0.3 Automated blood basophil count (count/volume) 0.0 10*3/uL 0.0-0.1 Blood manual differential performed dete ction - 07/25/16 08:10 Blood monocytes/100 leukocytes 0 % NRG Manual blood segmented neutrophils/100 leukocytes 89 % NRG Blood band neutrophils/100 leukocytes 7 % NRG Manual blood lymphocytes/100 leukocytes 4 % NRG Manual eosinophils/100 leukocytes in nose 0 % NRG Manual blood basophils/100 leukocytes 0 % NRG Blood erythrocyte morphology finding identification NORMAL NRG Serum or plasma troponin i.cardiac measu rement (mass/volume) - 07/25/16 08:10 Serum or plasma troponin i.cardiac measurement (mass/v olume) 3.98 ng/mL <0.30 Blood lactic acid measurement (moles/vol ume) - 07/25/16 08:30 Blood lactic acid measurement (moles/volume) 1.52 mmol/L 0.50-2.00 Arterial blood gas measurement - 7 10:15 Blood pCO2 37 mm[Hg] 35-45 Blood pO2 95 mm[Hg] 79-93 Arterial blood bicarbonate measurement (moles/volume) 22 mmol/L 23-27 Arterial blood base excess by calculation -2.0 mmo l/L -2.5-2.5 Arterial blood oxygen saturation measurement 98 % 94-100 * Inhaled oxygen flow rate 2 NRG Arterial blood pH measurement with patient temperature correction 7.39 7.37-7.43 Arterial blood carbon dioxide, total measurement (mole s/volume) 23.4 mmol/L 21.0-31.0 Body site LR NRG Assessment of wrist artery patency prior to arterial p uncture YES-POS NRG Setting of ventilation mode NO NR G Measurement of body temperature 98.1 NRG Methicillin resistant Staphylococcus aur eus (MRSA) screening culture - 07/25/16 12:40 Methicillin resistant Staphylococcus aureus (MRSA) scr eening culture NEG NRG Automated blood complete blood count (he mogram) panel - 07/26/16 03:15 Blood leukocytes automated count (number/volume) 10.5 10*3/uL 4.3-11.0 Blood erythrocytes automated count (number/volume) 4.01 10*6/uL 4.35-5.85 Venous blood hemoglobin measurement (mass/volume) 13.4 g/dL 13.3-17.7 Blood hematocrit (volume fraction) 39 % 40-54 Automated erythrocyte mean corpuscular volume 98 [ foz_us] 80-99 Automated erythrocyte mean corpuscular h emoglobin (mass per erythrocyte) 33 pg 25-34 Automated erythrocyte mean corpuscular h emoglobin concentration measurement (mass/volume) 34 g/dL 32-36 Automated erythrocyte distribution width ratio 13. 0 % 10.0- 14.5 Automated blood platelet count (count/volume) 174 10*3/uL 130-400 Automated blood platelet mean volume measurement 11.9 [foz_us] 7.4-10.4 Comprehensive metabolic panel - 07/26/16 03:15 Serum or plasma sodium measurement (moles/volume) 142 mmol/L 135-145 Serum or plasma potassium measurement (moles/volume) 4.1 mmol/L 3.6-5.0 Serum or plasma chloride measurement (moles/volume) 108 mmol/L 98-107 Carbon dioxide 23 mmol/L 21-32 Serum or plasma anion gap determination (moles/volume) 11 mmol/L 5-14 Serum or plasma urea nitrogen measurement (mass/volume ) 16 mg/dL 7-18 Serum or plasma creatinine measurement (mass/volume) 0.75 mg/dL 0.60-1.30 Serum or plasma urea nitrogen/creatinine mass ratio 21 NRG Serum or plasma creatinine measurement w ith calculation of estimated glomerular filtration rate > NRG Serum or plasma glucose measurement (mass/volume) 131 mg/dL 70-105 Serum or plasma calcium measurement (mass/volume) 8.9 mg/dL 8.5-10.1 Serum or plasma total bilirubin measurement (mass/volu me) 0.7 mg/dL 0.1-1.0 Serum or plasma alkaline phosphatase lindsay surement (enzymatic activity/volume) 75 U/L 40-136 Serum or plasma aspartate aminotransfera se measurement (enzymatic activity/volume) 60 U/L 5-34 Serum or plasma alanine aminotransferase measurement (enzymatic activity/volume) 21 U/L 0-55 Serum or plasma protein measurement (mass/volume) 5.8 g/dL 6.4-8.2 Serum or plasma albumin measurement (mass/volume) 3.6 g/dL 3.2-4.5 Magnesium - 07/26/16 03:15 Magnesium 2.1 mg/dL 1.8-2.4 Lipid 1996 panel - 07/26/16 03:15 Serum or plasma triglyceride measurement (mass/volume) 45 mg/dL <150 Serum or plasma cholesterol measurement (mass/volume) 144 mg/dL < 200 Serum or plasma cholesterol in HDL measurement (mass/v olume) 50 mg/dL 40-60 Cholesterol in LDL [mass/volume] in serum or plasma by direct assay 84 mg/dL 1-129 Serum or plasma cholesterol in VLDL measurement (mass/ volume) 9 mg/dL 5-40 Complete blood count (CBC) with automate d white blood cell (WBC) differential - 07/25/17 06:58 Blood leukocytes automated count (number/volume) 8.7 10*3/uL 4.3-11.0 Blood erythrocytes automated count (number/volume) 4.66 10*6/uL 4.35-5.85 Venous blood hemoglobin measurement (mass/volume) 15.6 g/dL 13.3-17.7 Blood hematocrit (volume fraction) 47 % 40-54 Automated erythrocyte mean corpuscular volume 100 [foz_us] 80-99 Automated erythrocyte mean corpuscular h emoglobin (mass per erythrocyte) 34 pg 25-34 Automated erythrocyte mean corpuscular h emoglobin concentration measurement (mass/volume) 33 g/dL 32-36 Automated erythrocyte distribution width ratio 12. 9 % 10.0- 14.5 Automated blood platelet count (count/volume) 240 10*3/uL 130-400 Automated blood platelet mean volume measurement 11.3 [foz_us] 7.4-10.4 Automated blood neutrophils/100 leukocytes 42 % 42-75 Automated blood lymphocytes/100 leukocytes 37 % 12-44 Blood monocytes/100 leukocytes 10 % 0-12 Automated blood eosinophils/100 leukocytes 10 % 0-10 Automated blood basophils/100 leukocytes 1 % 0-10 Blood neutrophils automated count (number/volume) 3.7 10*3 1.8-7.8 Blood lymphocytes automated count (number/volume) 3.2 10*3 1.0-4.0 Blood monocytes automated count (number/volume) 0. 9 10*3 0.0-1.0 Automated eosinophil count 0.9 10*3/uL 0 .0-0.3 Automated blood basophil count (count/volume) 0.1 10*3/uL 0.0-0.1 Influenza virus A and B antigen detectio n - 07/25/17 06:58 FLU RESULT NEGATIVE FOR INFLUENZA A AND B ANTIGENS BY IA [facility] Comprehensive metabolic panel - 07/25/17 06:58 Serum or plasma sodium measurement (moles/volume) 141 mmol/L 135-145 Serum or plasma potassium measurement (moles/volume) 4.4 mmol/L 3.6-5.0 Serum or plasma chloride measurement (moles/volume) 105 mmol/L 98-107 Carbon dioxide 17 mmol/L 21-32 Serum or plasma anion gap determination (moles/volume) 19 mmol/L 5-14 Serum or plasma urea nitrogen measurement (mass/volume ) 12 mg/dL 7-18 Serum or plasma creatinine measurement (mass/volume) 0.98 mg/dL 0.60-1.30 Serum or plasma urea nitrogen/creatinine mass ratio 12 NRG Serum or plasma creatinine measurement w ith calculation of estimated glomerular filtration rate > NRG Serum or plasma glucose measurement (mass/volume) 182 mg/dL 70-105 Serum or plasma calcium measurement (mass/volume) 9.6 mg/dL 8.5-10.1 Serum or plasma total bilirubin measurement (mass/volu me) 0.4 mg/dL 0.1-1.0 Serum or plasma alkaline phosphatase lindsay surement (enzymatic activity/volume) 102 U/L 40-136 Serum or plasma aspartate aminotransfera se measurement (enzymatic activity/volume) 23 U/L 5-34 Serum or plasma alanine aminotransferase measurement (enzymatic activity/volume) 16 U/L 0-55 Serum or plasma protein measurement (mass/volume) 7.1 g/dL 6.4-8.2 Serum or plasma albumin measurement (mass/volume) 4.3 g/dL 3.2-4.5 Magnesium - 07/25/17 06:58 Magnesium 2.6 mg/dL 1.8-2.4 Serum or plasma troponin i.cardiac measu rement (mass/volume) - 07/25/17 06:58 Serum or plasma troponin i.cardiac measurement (mass/v olume) < ng/mL <0.30 Serum or plasma C reactive protein measu rement (mass/volume) - 07/25/17 06:58 Serum or plasma C reactive protein measurement (mass/v olume) 0.11 mg/dL 0.00-0.50 Serum or plasma lithium measurement (mol es/volume) - 07/25/17 06:58 BNP level 45.5 pg/mL <100.0 Complete blood count (CBC) with automate d white blood cell (WBC) differential - 07/26/19 11:10 Blood leukocytes automated count (number/volume) 7.0 10*3/uL 4.3-11.0 Blood erythrocytes automated count (number/volume) 4.74 10*6/uL 4.35-5.85 Venous blood hemoglobin measurement (mass/volume) 15.7 g/dL 13.3-17.7 Blood hematocrit (volume fraction) 47 % 40-54 Automated erythrocyte mean corpuscular volume 100 [foz_us] 80-99 Automated erythrocyte mean corpuscular h emoglobin (mass per erythrocyte) 33 pg 25-34 Automated erythrocyte mean corpuscular h emoglobin concentration measurement (mass/volume) 33 g/dL 32-36 Automated erythrocyte distribution width ratio 14. 0 % 10.0- 14.5 Automated blood platelet count (count/volume) 244 10*3/uL 130-400 Automated blood platelet mean volume measurement 11.1 [foz_us] 7.4-10.4 Automated blood neutrophils/100 leukocytes 45 % 42-75 Automated blood lymphocytes/100 leukocytes 39 % 12-44 Blood monocytes/100 leukocytes 10 % 0-12 Automated blood eosinophils/100 leukocytes 6 % 0-10 Automated blood basophils/100 leukocytes 1 % 0-10 Blood neutrophils automated count (number/volume) 3.1 10*3 1.8-7.8 Blood lymphocytes automated count (number/volume) 2.7 10*3 1.0-4.0 Blood monocytes automated count (number/volume) 0. 7 10*3 0.0-1.0 Automated eosinophil count 0.4 10*3/uL 0 .0-0.3 Automated blood basophil count (count/volume) 0.1 10*3/uL 0.0-0.1 Comprehensive metabolic panel - 07/26/19 11:10 Serum or plasma sodium measurement (moles/volume) 141 mmol/L 135-145 Serum or plasma potassium measurement (moles/volume) 4.8 mmol/L 3.6-5.0 Serum or plasma chloride measurement (moles/volume) 109 mmol/L 98-107 Carbon dioxide 17 mmol/L 21-32 Serum or plasma anion gap determination (moles/volume) 15 mmol/L 5-14 Serum or plasma urea nitrogen measurement (mass/volume ) 11 mg/dL 7-18 Serum or plasma creatinine measurement (mass/volume) 1.02 mg/dL 0.60-1.30 Serum or plasma urea nitrogen/creatinine mass ratio 11 NRG Serum or plasma creatinine measurement w ith calculation of estimated glomerular filtration rate > NRG Serum or plasma glucose measurement (mass/volume) 223 mg/dL 70-105 Serum or plasma calcium measurement (mass/volume) 9.0 mg/dL 8.5-10.1 Serum or plasma total bilirubin measurement (mass/volu me) 0.3 mg/dL 0.1-1.0 Serum or plasma alkaline phosphatase lindsay surement (enzymatic activity/volume) 98 U/L 40-136 Serum or plasma aspartate aminotransfera se measurement (enzymatic activity/volume) 23 U/L 5-34 Serum or plasma alanine aminotransferase measurement (enzymatic activity/volume) 12 U/L 0-55 Serum or plasma protein measurement (mass/volume) 6.7 g/dL 6.4-8.2 Serum or plasma albumin measurement (mass/volume) 3.9 g/dL 3.2-4.5 CALCIUM CORRECTED 9.1 mg/dL 8.5-10.1 PT panel in platelet poor plasma by coag ulation assay - 07/26/19 11:10 Prothrombin time (PT) in platelet poor plasma by coagu lation assay 13.7 s 12.2-14.7 INR in platelet poor plasma or blood by coagulation as say 1.0 0.8-1.4 Serum or plasma lithium measurement (mol es/volume) - 07/26/19 11:10 BNP PT 110.7 pg/mL <100.0 Arterial blood gas measurement - 0 11:12 Blood pCO2 51 mm[Hg] 35-45 Blood pO2 129 mm[Hg] 79-93 Arterial blood bicarbonate measurement (moles/volume) 19 mmol/L 23-27 Arterial blood base excess by calculation -8.0 mmo l/L -2.5-2.5 Arterial blood oxygen saturation measurement 97 % 94-100 * Inhaled oxygen flow rate 3 L NRG Arterial blood pH measurement with patient temperature correction 7.19 7.37-7.43 Arterial blood carbon dioxide, total measurement (mole s/volume) 20.8 mmol/L 21.0-31.0 Body site RIGHT RADIAL NRG Assessment of wrist artery patency prior to arterial p uncture YES-POS NRG Setting of ventilation mode NO NR G Measurement of body temperature 96.0 NRG Serum or plasma troponin i.cardiac measu rement (mass/volume) - 07/26/19 11:30 Serum or plasma troponin i.cardiac measurement (mass/v olume) < ng/mL <0.028 Encounters ACCT No. Visit Date/Time Discharge Status Pt. Type Provider Facility Loc./Unit Complaint [id number] 07/13/2018 15:21:00 23:59:59 CLS Outpatient MARIKA NELSON MD [facility] CARD CAD,COPD [id number] 07/13/2018 15:19:00 23:59:59 CLS Outpatient MARIKA NELSON MD [facility] RAD CAD,COPD,MR [id number] 07/25/2017 06:52:00 08:42:00 DIS Emergency MIKE GARCIA MD [facility] ER SOB [id number] 04/09/2017 11:33:00 23:59:59 CLS Outpatient MARIKA NELSON MD [facility] CARD CAD [id number] 01/29/2017 08:47:00 23:59:59 CLS Outpatient MARIKA NELSON MD [facility] CARD CAD I25.10 [id number] 11/08/2016 11:00:00 23:59:59 CLS Preadmit MARIKA NELSON MD [facility] CR AMI,STENT [id number] 11/04/2016 11:05:00 017 00:01:00 DIS Outpatient MARIKA NELSON MD [facility] CR AMI,STENT [id number] 07/25/2016 10:17:00 017 10:50:00 DIS Inpatient MALAIKA CARDENAS DO, [facility] ICU RESP FAILURE,COPD EXACE RBATION,ST DEPRESSION [id number] 07/26/2019 11:21:00 Document Registration
--- NOTE | 2019-07-26 12:50 | NUR ---
CALLED DUARTE LATHAM TO INFORM HIM THAT THE PATIENT ROOM (412-1) IS READY. THIS RN WILL ASSUME CARE OF THIS PATIENT WHEN HE ARRIVES TO ROOM 412.
--- NOTE | 2019-07-26 13:40 | NUR ---
MECHELLE CABALLERO admitted to room 412-1, with an admitting diagnosis of HYPERCAPNIC RESPIRATORY FAILURE, on 07/26/19 from EMERGENCY DEPARTMENT via W/C, accompanied by ED STAFF. MECHELLE CABALLERO introduced to surroundings, call light, bed controls, phone, TV, temperature control, lights, meal times, smoking policy, visitor policy, side rail policy, bathrooms and showers. Patient Rights given to patient in the handbook. MECHELLE CABALLERO verbalizes understanding that [facility] is not responsible for the loss or damage to any personal effects or valuables that are kept in the patients posession during their hospitalization. MECHELLE CABALLERO verbalizes understanding of Interdisciplinary Patient Education. Patient and/or family were informed about the Rapid Response Team and its purpose.
[2019-07-26 13:48] VITALS: BP 95/66
[2019-07-26 13:52] VITALS: BP 95/66
[2019-07-26 13:55] VITALS: BP 149/103
[2019-07-26] MEDS: cefTRIAXone 1,000 MG/SWFI 10 ML IV PUSH IV SCH ×2 (14:07)
[2019-07-26] MEDS: LACTATED RINGERS 1,000 ML IV SCH (14:07)
[2019-07-26] MEDS ORDERED: CATHETER FLUSH 10 ML SYR IV PRN (14:15)
[2019-07-26] MEDS ORDERED: CLOP75TA28 PO (14:59)
[2019-07-26] MEDS ORDERED: LISI40TA PO (14:59)
[2019-07-26] MEDS ORDERED: ASPI-983 PO (14:59)
[2019-07-26] MEDS ORDERED: METO50TA7 PO (14:59)
[2019-07-26] MEDS ORDERED: AMLO5TAB9 PO (14:59)
--- NOTE | 2019-07-26 15:02 | NUR ---
SPOKE WITH THE PT AND WENT THRU THE EXT MED HISTORY TO COMPLETE THE MED REC PT WAS ABLE TO TELL ME ALL HIS MEDICATIONS (WHEN/HOW HE TAKES THEM) AND THE INFORMATION MATCHED THE EXT MED HISTORY OTC MEDS:NONE
[2019-07-26 16:00] VITALS: BP 85/56
[2019-07-26] MEDS ORDERED: RT-ALBUTEROL SULF 2.5 MG/3 ML PRE-MIX VIAL INH PRN (16:00)
[2019-07-26] MEDS: ENOXAPARIN 30 MG/0.3 ML (LOVENOX) SYR SC SCH (16:31)
[2019-07-26] MEDS ORDERED: ANTACID SUSP 30 ML UDC (MYLANTA) PO PRN (18:15)
[2019-07-26] MEDS ORDERED: polyethylene glycoL POWDER 17 GM (MIRALAX) PACK PO PRN (18:15)
[2019-07-26] MEDS ORDERED: BISACODYL 10 MG SUPP (DULCOLAX) PR PRN (18:15)
[2019-07-26] MEDS ORDERED: ONDANSETRON 4 MG (ZOFRAN) ORAL DISSOLVE TAB PO PRN (18:15)
[2019-07-26] MEDS ORDERED: ACETAMINOPHEN 325 MG TABLET PO PRN (18:15)
[2019-07-26] MEDS ORDERED: MELATONIN 3 MG TABLET PO PRN (18:15)
[2019-07-26] MEDS ORDERED: diphenhydrAMINE 25 MG TAB (BENADRYL) PO PRN (18:15)
[2019-07-26] MEDS ORDERED: ONDANSETRON 4 MG/2 ML (SDV) Z0FRAN IV PRN (18:15)
[2019-07-26] MEDS: RT-ALBUTEROL SULF 2.5 MG/3 ML PRE-MIX VIAL INH SCH ×2 (18:19→21:06)
[2019-07-26] MEDS ORDERED: CLOPIDOGREL 75 MG (PLAVIX) TABLET PO SCH (19:00)
[2019-07-26] MEDS ORDERED: ASPIRIN E.C. 81 MG (ECOTRIN) TAB PO SCH (19:00)
[2019-07-26 19:57] VITALS: BP 98/67
[2019-07-26] MEDS: DOCUSATE SODIUM 100 MG (COLACE) CAP PO SCH (21:52)
[2019-07-26] MEDS: inSUlin ASPART (NovoLOG) 1 UNIT/0.01 ML (CHARGE PER UNIT) SC SCH (21:53)
[2019-07-26] MEDS: methylPREDNISolone 40 MG/ML (Solu-MEDROL) VIAL IV SCH (21:53)
[2019-07-27 00:18] VITALS: BP 96/64
[2019-07-27] MEDS: RT-ALBUTEROL SULF 2.5 MG/3 ML PRE-MIX VIAL INH SCH ×3 (01:32→11:28)
[2019-07-27] MEDS: LACTATED RINGERS 1,000 ML IV SCH ×2 (03:58→10:42)
[2019-07-27] MEDS: methylPREDNISolone 40 MG/ML (Solu-MEDROL) VIAL IV SCH (03:58)
[2019-07-27 04:00] VITALS: BP 93/61
[2019-07-27] MEDS: inSUlin ASPART (NovoLOG) 1 UNIT/0.01 ML (CHARGE PER UNIT) SC SCH ×2 (05:28→11:01)
[2019-07-27 06:25] LABS: BASOPHILS % (AUTO) 0 % (0-10); EOSINOPHILS % (AUTO) 0 % (0-10); HEMATOCRIT 40 % (40-54); HEMOGLOBIN 13.6 G/DL (13.3-17.7); LYMPHOCYTES # (AUTO) 0.5 X 10^3 (1.0-4.0); LYMPHOCYTES % (AUTO) 14 % (12-44); MEAN CORPUSCULAR HEMOGLOBIN 33 PG (25-34); MEAN CORPUSCULAR HGB CONC 34 G/DL (32-36); MEAN CORPUSCULAR VOLUME 98 FL (80-99); MEAN PLATELET VOLUME 10.7 FL (7.4-10.4); MONOCYTES # (AUTO) 0.1 X 10^3 (0.0-1.0); MONOCYTES % (AUTO) 3 % (0-12); NEUTROPHILS # (AUTO) 2.8 X 10^3 (1.8-7.8); NEUTROPHILS % (AUTO) 84 % (42-75); PLATELET COUNT 200 10^3/uL (130-400); RED CELL DISTRIBUTION WIDTH 13.8 % (10.0-14.5); WHITE BLOOD COUNT 3.3 10^3/uL (4.3-11.0)
[2019-07-27 06:38] LABS: ALBUMIN 3.8 GM/DL (3.2-4.5); CHLORIDE 104 MMOL/L (98-107); POTASSIUM 5.1 MMOL/L (3.6-5.0); SODIUM 135 MMOL/L (135-145)
[2019-07-27 06:40] LABS: CALCIUM 8.9 MG/DL (8.5-10.1)
[2019-07-27 06:41] LABS: GLUCOSE 202 MG/DL (70-105); TOTAL PROTEIN 6.3 GM/DL (6.4-8.2)
[2019-07-27 06:42] LABS: CARBON DIOXIDE 20 MMOL/L (21-32)
[2019-07-27 06:43] LABS: BILIRUBIN,TOTAL 0.4 MG/DL (0.1-1.0)
[2019-07-27 06:44] LABS: ALKALINE PHOSPHATASE 78 U/L (40-136); CREATININE SERUM 0.84 MG/DL (0.60-1.30); GFR ESTIMATED > 60
[2019-07-27 06:45] LABS: BUN/CREATININE RATIO 17
[2019-07-27 06:47] LABS: ALANINE AMINOTRANSFERASE 14 U/L (0-55)
[2019-07-27 08:00] VITALS: BP 97/62
[2019-07-27] MEDS ORDERED: predniSONE 20 MG TAB PO ONE (08:00)
[2019-07-27] MEDS: cefTRIAXone 1,000 MG/SWFI 10 ML IV PUSH IV SCH ×2 (08:58)
[2019-07-27] MEDS: DOCUSATE SODIUM 100 MG (COLACE) CAP PO SCH (08:59)
[2019-07-27] MEDS: ENOXAPARIN 30 MG/0.3 ML (LOVENOX) SYR SC SCH (08:59)
[2019-07-27] MEDS ORDERED: NICOTINE 14 MG (NICODERM) PATCH TD SCH (09:00)
[2019-07-27] MEDS ORDERED: IPRA3AMP31 IH ×2 (10:26→10:59)
[2019-07-27] MEDS ORDERED: PRED10TA22 PO (10:30)
--- NOTE | 2019-07-27 12:22 | Discharge Summary ---
Discharge Summary Hospital Course Was the Problem List Reviewed?: Yes Problems/Dx: (1) COPD with acute exacerbation Status: Acute Hospital Course Date of Admission: Jul 26, 2019 at 12:03 Admission Diagnosis : acute hypercapnic respiratory failure due to acute COPD exacerbation Family Physician/Provider: Santo Calle MD Date of Discharge: 07/27/19 Discharge Diagnosis: acute hypercapnic respiratory failure due to acute COPD exacerbation Hospital Course: Kevon Robledo is a 73-year-old male with past medical history of COPD who presented with shortness of breath and was admitted with acute hypercapnic respiratory failure due to acute COPD exacerbation. He was initially treated with BiPAP and improved. He was started on steroids and DuoNeb's. His oxygen requirement resolved and he no longer required BiPAP. He was discharged with a course of steroids. His home nebulizer has been malfunctioning so he was given a prescription for a new nebulizer. He will follow up with Dr. Fajardo, pulmonology. He will also follow-up with Dr. Calle, PCP. Labs and Pending Lab Test: Laboratory Tests 07/26/19 20:16: Glucometer 177H 07/27/19 05:07: Glucometer 159H 07/27/19 06:05: White Blood Count 3.3L, Red Blood Count 4.07L, Hemoglobin 13.6, Hematocrit 40, Mean Corpuscular Volume 98, Mean Corpuscular Hemoglobin 33, Mean Corpuscular Hemoglobin Concent 34, Red Cell Distribution Width 13.8, Platelet Count 200, Mean Platelet Volume 10.7H, Neutrophils (%) (Auto) 84H, Lymphocytes (%) (Auto) 14, Monocytes (%) (Auto) 3, Eosinophils (%) (Auto) 0, Basophils (%) (Auto) 0, Neutrophils # (Auto) 2.8, Lymphocytes # (Auto) 0.5L, Monocytes # (Auto) 0.1, Eosinophils # (Auto) 0.0, Basophils # (Auto) 0.0, Sodium Level 135, Potassium Level 5.1H, Chloride Level 104, Carbon Dioxide Level 20L, Anion Gap 11, Blood Urea Nitrogen 14, Creatinine 0.84, Estimat Glomerular Filtration Rate > 60, BUN/Creatinine Ratio 17, Glucose Level 202H, Calcium Level 8.9, Corrected Calcium 9.1, Total Bilirubin 0.4, Aspartate Amino Transf (AST/SGOT) 36H, Alanine Aminotransferase (ALT/SGPT) 14, Alkaline Phosphatase 78, Total Protein 6.3L, Albumin 3.8 07/27/19 10:59: Glucometer 157H Home Meds Active Iprat-Albut 0.5-3(2.5) mg/3 ml (Ipratropium/Albuterol Sulfate) 3 Ml Ampul.neb 3 Ml IH Q6H PRN 30 Days Prednisone 10 Mg Tab.ds.pk 10 Mg PO DAILY Take 6 tabs(60mg)daily,decrease by 1 tab(10MG)daily. Reported Lisinopril 40 Mg Tablet 20 Mg PO 1900 TAKES OF A 40MG TAB Aspirin EC (Aspirin) 81 Mg Tablet. 81 Mg PO 1900 Metoprolol Succinate 50 Mg Tab.er.24h 50 Mg PO 1900 Clopidogrel (Clopidogrel Bisulfate) 75 Mg Tablet 75 Mg PO 1900 Amlodipine Besylate 5 Mg Tablet 5 Mg PO 1900 Assessment/Pt Instructions take medications as prescribed. You're being given a new nebulizer. We are setting up with an appointment with Dr. Fajardo, pulmonology. Follow up with Dr. Calle in about a week. Discharge Planning: <30 minutes discharge planning Discharge Instructions Discharge Diet: No Restrictions Activity as Tolerated: Yes Pneumonia Vaccine Order Indica: Yes Discharge Physical Examination Vital Signs Vital Signs Date Time Temp Pulse Resp B/P (MAP) Pulse Ox O2 Delivery O2 Flow Rate FiO2 07/27/19 11:28 97 Room Air 07/27/19 08:00 36.8 95 20 97/62 (74) 2.00 07/26/19 13:55 32 General Appearance: No Apparent Distress, Thin HEENT: PERRL/EOMI, Pharynx Normal Respiratory: Lungs Clear, No Respiratory Distress, Decreased Breath Sounds Cardiovascular: Regular Rate, Rhythm, No Edema, No Murmur Gastrointestinal: Normal Bowel Sounds, Non Tender, Soft Extremity: Normal Inspection, Non Tender, No Pedal Edema Skin: Normal Color, Warm/Dry Neurologic/Psychiatric: Alert, Oriented x3, No Motor/Sensory Deficits, Normal Mood/Affect Allergies: Coded Allergies: budesonide (Verified Allergy, Unknown, Pt has received Solu-medrol in the past w/o issue, 07/26/19) formoterol (Verified Allergy, Unknown, 07/26/19) Copy Copies To 1: SANTO CALLE MD Copies To 2: RENE FAJARDO DO Discharge Summary Date of Admission Jul 26, 2019 at 12:03 Date of Discharge Discharge Date: Jul 27, 2019 Discharge Time: 12:20 Admission Diagnosis acute hypercapnic respiratory failure due to acute COPD exacerbation Discharge Diagnosis (1) COPD with acute exacerbation Status: Acute (2) Acute respiratory failure with hypoxia and hypercapnia Status: Acute Clinical Quality Measures DVT/VTE Risk/Contraindication: Risk Factor Score Per Nursin RFS Level Per Nursing on Admit: 4+=Very High AALIYAH FARNSWORTH MD Jul 27, 2019 12:11
[2019-07-27 12:51] VITALS: BP 97/62
--- NOTE | 2019-07-27 13:57 | NUR ---
SUSIE/JOEL visited with patient for discharge needs. Plan: The patient would return home with a nebulizer. SUSIE/JOEL provided the patient with a patient preference form. He chose [facility] for his nebulizer. SUSIE/JOEL contacted the DME and spoke with Luana. SUSIE/JOEL faxed over the face sheet, short stay summary, and script. SUSIE/JOEL verified his address on the face sheet and phone number. The patient verbalized that he would like the nebulizer delivered to his home. SUSIE/JOEL informed Luana of this. She verbalized understanding. SUSIE/JOEL provided the patient with a phone number to contact the DME when he arrived home. He verbalized understanding.
[2019-07-28] MEDS ORDERED: predniSONE 20 MG TAB PO SCH (07:00)
== END 2019-07-27 13:05 | disposition home or self-care (01) | DRG 189 ==
LOC: EDUNIT# 11:05 → ER 11:06 → 4TH 12:03
PROVIDERS: ADMIT Internal Medicine; ATTEND Internal Medicine
DX: J96.02 Acute respiratory failure with hypercapnia (principal); J96.01 Acute respiratory failure with hypoxia; J43.9 Emphysema, unspecified; F17.210 Nicotine dependence, cigarettes, uncomplicated; I25.10 Atherosclerotic heart disease of native coronary artery without angina pectoris; Z95.5 Presence of coronary angioplasty implant and graft
CPT/HCPCS: 36415; 71045; 80053; 82805; 82962; 83880; 84484; 85025; 85610; 94640; 94760

== ENCOUNTER → 2019-08-25 | Outpatient (CLI) | payer MEDICARE, OTHER ==
[~2019-08-25] MED LIST changes: +AMLO5TAB9 PO; +CLOP75TA28 PO; +IPRA3AMP31 IH; +LISI40TA PO; +METO50TA7 PO; +RT-ALBUTEROL SULF 2.5 MG/3 ML PRE-MIX VIAL INH ONE; +RT-ALBUTEROL SULF 2.5 MG/3 ML PRE-MIX VIAL ONE
== END ==
LOC: RT 10:04
PROVIDERS: ATTEND Nurse Practitioner Family
DX: J44.9 Chronic obstructive pulmonary disease, unspecified (principal); F17.201 Nicotine dependence, unspecified, in remission
CPT/HCPCS: 94060; 94729

== ENCOUNTER → 2019-10-11 | Outpatient (CLI) | payer MEDICARE, OTHER ==
[~2019-10-11] MED LIST changes: +CATHETER FLUSH 10 ML SYR IV PRN; +HOLD METFORMIN - RECEIVED CONTRAST 20 ML VIAL IV SCH; +IOHEXOL 350 MG/ML 100 ML (OMNIPAQUE 350) VIAL IV ONE; -RT-ALBUTEROL SULF 2.5 MG/3 ML PRE-MIX VIAL INH ONE; -RT-ALBUTEROL SULF 2.5 MG/3 ML PRE-MIX VIAL ONE
[2019-10-11 09:23] LABS: BUN/CREATININE RATIO 16; CREATININE SERUM 0.94 MG/DL (0.60-1.30); GFR ESTIMATED > 60
--- NOTE | 2019-10-11 11:41 | Diagnostic Imaging Report ---
CT CHEST W TECHNIQUE: Multiple contiguous axial images were obtained through the chest with the use of intravenous contrast. All CT scans use one or more of the following dose optimizing techniques: automated exposure control, MA and/or KvP adjustment based on a patient size and exam type, or iterative reconstruction. INDICATION: Cough, dyspnea and hypoxia. COMPARISON: None available. FINDINGS: Lungs and airway: No endoluminal nodule within trachea. Severe centrilobular emphysema is present. No pulmonary mass or consolidation. Calcified left upper lobe pulmonary micronodule is due to old granulomatous infection. No indeterminate pulmonary nodules. Pleura: No pleural effusion or pneumothorax. Heart and mediastinum: Thyroid is normal. No supraclavicular or axillary lymphadenopathy. No mediastinal, hilar or juxtaphrenic lymphadenopathy. Heart is normal in size without pericardial effusion. Coronary artery calcifications and/or stents are present. Thoracic aorta is normal in caliber with extensive calcified plaquing present. Great vessels of the aortic arch are widely patent. Upper abdomen: No acute abnormality in the upper abdomen. There are few simple cysts within the left kidney that require no dedicated follow-up imaging. Musculoskeletal: Hemangioma is present within the T11 vertebral body. No concerning focal osseous lesions. IMPRESSION: 1. Severe emphysema. 2. No features of pneumonia or intrathoracic neoplasm. 3. Coronary artery disease and atherosclerosis. Dictated by: Dictated on workstation # [id number]
== END ==
LOC: RAD 08:54
PROVIDERS: ATTEND Nurse Practitioner Family
DX: J43.9 Emphysema, unspecified (principal); I25.10 Atherosclerotic heart disease of native coronary artery without angina pectoris; F17.201 Nicotine dependence, unspecified, in remission
CPT/HCPCS: 36415; 71260; 82565; 84520

== ENCOUNTER → 2020-11-01 | Outpatient (CLI) | payer MEDICARE, OTHER ==
[~2020-11-01] MED LIST changes: +AMLO-250 PO; -AMLO5TAB9 PO; +ASPI-1238 PO; -ASPI-983 PO; -CATHETER FLUSH 10 ML SYR IV PRN; -HOLD METFORMIN - RECEIVED CONTRAST 20 ML VIAL IV SCH; -IOHEXOL 350 MG/ML 100 ML (OMNIPAQUE 350) VIAL IV ONE; -LISI10TA2 PO; +LISI10TA25 PO; -LISI40TA PO; +LISI40TA9 PO
--- NOTE | 2020-11-01 14:38 | Diagnostic Imaging Report ---
EXAMINATION: CT Lung Screening. INDICATION:Screening for lung cancer, 54 pack year history of smoking, quit smoking 4 years prior. TECHNIQUE: Noncontrast, low-dose CT imaging performed according to the lung cancer screening protocol. Auto Exposure Controls were utilize during the CT exam to meet ALARA standards for radiation dose reduction. COMPARISON:10/11/2019 FINDINGS:A few calcified mediastinal and hilar lymph nodes are present. No pathologically enlarged lymph nodes within the chest. Moderate vascular calcifications, including within the coronary arteries. No aneurysmal dilatation of the thoracic aorta. The heart is within normal limits in size. No pericardial effusion. No pleural effusion. Severe background emphysematous changes are present. No pneumothorax. Thin calcified pleural plaques are present, particularly within the left lung apex. The lungs are otherwise clear of suspicious pulmonary nodule. Dependently layering filling defect is noted within the left mainstem bronchus with associated internal gas lucencies. Therefore, this is felt related to secretions. The trachea is patent. Hypodensity within the superior pole of the left kidney is again noted, similar to the prior examination. The minimally visualized upper abdomen appears similar to the prior exam. Hemangioma within the lower thoracic spine. Scattered osseous degenerative changes without acute osseous abnormality. IMPRESSION: Advanced background emphysematous changes are present without suspicious pulmonary nodule. Dependently layering filling defect with internal gas lucencies within the left mainstem bronchus is felt to relate to secretions and mucous. Evidence of chronic granulomatous disease. LUNG-RADS CATEGORY: 1S: Negative MODIFIER:S: Advanced background emphysematous changes Follow-up: Continued annual low-dose CT of the chest in 12 months. Dictated by: Dictated on workstation # [id number]
== END ==
LOC: RAD 13:45
PROVIDERS: ATTEND Nurse Practitioner Family
DX: Z12.2 Encounter for screening for malignant neoplasm of respiratory organs (principal); J43.9 Emphysema, unspecified; Z87.891 Personal history of nicotine dependence
CPT/HCPCS: 71271

== ENCOUNTER → 2021-01-16 | Outpatient (CLI) | payer MEDICARE, OTHER | LOC: CARD 12:00 | PROVIDERS: ATTEND Internal Medicine Cardiovascular Disease | DX: I34.0 Nonrheumatic mitral (valve) insufficiency (principal); I11.9 Hypertensive heart disease without heart failure | CPT/HCPCS: 93306 ==

== ENCOUNTER → 2022-03-14 | Outpatient (CLI) | payer MEDICARE, OTHER ==
[~2022-03-14] MED LIST changes: +ALBU8.5H6 IH; -RT-ALBUINH IH; +RT-ALBUTEROL SULF 2.5 MG/3 ML PRE-MIX VIAL INH ONE
== END ==
LOC: RT 08:48
PROVIDERS: ATTEND Internal Medicine Critical Care Medicine
DX: Z01.811 Encounter for preprocedural respiratory examination (principal); J44.9 Chronic obstructive pulmonary disease, unspecified
CPT/HCPCS: 94060; 94621; 94726; 94729